=== PATIENT | male | born 1945 | race Caucasian/White ===

== ENCOUNTER → 2023-03-10 | Emergency (ER) | payer MEDICAID ==
[~2023-03-10] MED LIST: HYDROCODONE/APAP 10/325 TAB ONE; KETOROLAC 30 MG/ML INJ ONE; MORPHINE 4 MG/ML SYR ONE; NA CHLORIDE 0.9% 1,000 ML ONE; ONDANSETRON 4 MG/2 ML VIAL ONE
--- OUTSIDE RECORDS SUMMARY | 2023-03-10 06:59 | XMS REPORT | Clinical Summary ---
Author Name Unknown Organization [facility] Address [address] [place] [address] Care Team Providers Care Stain Applicator Name Role Phone Vira Salazar MD Unavailable [phone] Jody Jackson MD Unavailable [phone] Cristina Lake NP Unavailable Unavailable Bennett Burton MD Unavailable Unavailsowmya e Pavithra Chung DO Unavailable [phone] Sarai Pichardo APRN Unavailable [phone] Juan F Bravo MD Unavailable [phone] Yary Cobian MD Primary Care Provider [phone] Shannon Quintanilla MD Unavailable [phone] Bud Bazzi MD Unavailable Dylan Rae MD Unavailable [phone] Matilde Appiah MD Unavailable Azul Erwin MD Unavailable [phone] Allergies Active Allergy Reactions Criticality Noted Date Comments Horse/Equine Containing Products Anxiety,Dermatitis,Hi ves,Itching,Shortness Of Breath,Swelling High Iodinated Contrast Media Hives,Shortness Of Breath,Dermatitis,Ishmael h High 10/28/2014 Other Itching,Palpitations , Rash Medium 07/06/2015 Any agent with horse serum Medications Medication Sig Dispensed Refills Start Date End Date Status gemfibrozil (LOPID) 600 mg tablet Take 1 tablet (600 mg) by mouth twice daily. cholesterol 0 Active loperamide (IMODIUM) 2 mg capsule Take 1 capsule (2 mg) by mouth every 4 (four) hours as needed. Reported on 05/22/2016 0 Active lisinopril (PRINIVIL,ZESTRI L) 20 mg tablet Take 1 tablet (20 mg) by mouth twice daily. 0 Active vit C/E/Zn/coppr/lut ein/zeaxan (PRESERVISION AREDS-2 ORAL) TAKE 2 CAPSULES BY MOUTH EVERY DAY 0 12/03/2019 Active citalopram (CeleXA) 20 mg tabletIndication s:Other insomnia,Social problem,Bereavem ent TAKE TWO TABLETS BY MOUTH EVERY MORNING AND 1 TABLET IN THE EVENING 270 tablet 0 04/25/2020 Active temazepam (RESTORIL) 30 mg capsuleIndicatio ns:Moderate major depression Take 1 capsule (30 mg) by mouth at bedtime. 90 capsule 0 04/25/2020 Active Additional Information Patient taking differently:30 mg oralNightly PRN, Reason: Other, Informant: Self, Reported on 10/30/2022 tamsulosin (FLOMAX) 0.4 mg 24 hr capsule Take 1 capsule (0.4 mg) by mouth daily. 0 03/31/2020 Active ALPRAZolam (XANAX) 0.5 mg tablet Take 1 tablet (0.5 mg) by mouth 3 (three) times a day as needed. 0 Active famotidine (PEPCID) 20 mg tablet Take 1 tablet (20 mg) by mouth 2 (two) times a day as needed. 0 Active folic acid (FOLVITE) 1 mg tablet Take 1 tablet (1 mg) by mouth daily. 0 Active TESTOSTERONE CYPIONATE IM Inject into the shoulder, thigh, or buttocks See Admin Instructions. Every week 0 Active alendronate (FOSAMAX) 70 mg tablet TAKE ONE (1) TABLET(S) BY MOUTH EVERY WEEK, 30 MIN BEFORE MEAL WITH 8 OZ WATER, DO NOT LAY DOWN FOR 30 MINS AFTER. 0 07/09/2022 Active Xiidra 5 % ophthalmic solution INSTILL ONE (1) DROP(S) IN EACH EYE TWICE A DAY. 0 07/19/2022 Active acetaminophen (TYLENOL) 500 mg tabletIndication s:back pain Take 1 tablet (500 mg) by mouth nightly as needed for mild pain. 0 Active finasteride (PROSCAR) 5 mg tablet Take 1 tablet (5 mg) by mouth at bedtime. 0 01/31/2022 Active levoFLOXacin (LEVAQUIN) 500 mg tablet Take 1 tablet (500 mg) by mouth daily. 0 Active fluticasone propionate (FLONASE) 50 mcg/spray nasal spray Inhale 2 sprays (100 mcg) into each nostril daily. 0 Active lansoprazole (PREVACID) 30 MG capsule Take 1 capsule (30 mg) by mouth every morning. Acid reflux 0 3 Discontinue d(Therapy completed) metFORMIN (GLUCOPHAGE) 1000 mg tablet Take 0.5 tablets (500 mg) by mouth 2 (two) times a day with meals. diabetes 0 3 Discontinue d(Therapy completed) amLODIPine (NORVASC) 10 mg tablet Take 1 tablet (10 mg) by mouth daily. 0 04/19/2017 3 Discontinue d(Therapy completed) glimepiride (AMARYL) 1 mg tablet Take 1 tablet (1 mg) by mouth at bedtime. 0 3 Discontinue d(Other/Not Applicable) BUPROPION HCL ORAL Take 150 mg by mouth daily. 0 05/25/2021 3 Discontinue d(Therapy completed) propranolol (INDERAL) 20 mg tablet TAKE HALF OF A TABLET BY MOUTH TWICE A DAY 0 06/25/2022 3 Discontinue d(Other/Not Applicable) potassium chloride (K-DUR,KLOR-CON M) 20 mEq tablet Take 1 tablet (20 mEq) by mouth daily. 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 Overview: [facility] DX update Bereavement 11/01/2015 Mild recurrent major depression 07/06/2015 Social problem 07/06/2015 Amyloidosis 06/27/2015 Other specified anxiety disorders 06/27/2015 Anxiety depression 06/27/2015 Insomnia 06/27/2015 Disorder due to infection 11/25/2013 Encounters Date Type Department Care Team Description 02/05/2023 1:30 PM RAIL SIGNAL MECHANIC Follow[facility]Up [facility] [address] [place] [address] Main [facility], 8th [place] [address] Yary Cobian MD Light chain (AL) amyloidosis (Primary Dx); Other specified counseling 02/05/2023 10:45 AM RAIL SIGNAL MECHANIC - 02/05/2023 11:59 PM RAIL SIGNAL MECHANIC Hospital [facility]counter [facility] [address] [place] [address], [place] [address] Mela Hwang PA Light chain (AL) amyloidosis Discharge Disposition: Home 02/05/2023 10:44 AM RAIL SIGNAL MECHANIC Hospital En[facility] [address] [place] [address], [place] [address] Mela Hwang PA Light chain (AL) amyloidosis Discharge Disposition: Home 02/05/2023 Travel 01/24/2023 8:45 AM RAIL SIGNAL MECHANIC [facility] [address] [place] [address], 9th [place] [address] Bud Bazzi MD History of actinic keratosis; Personal history of other malignant neoplasm of skin; Melanocytic nevus of trunk 01/24/2023 Travel 10/30/2022 10:30 AM CDT Follow[facility] [address] [place] [address] Main [facility], 8th [place] [address] Yary Cobian MD Light chain (AL) amyloidosis (Primary Dx); Other specified counseling 10/30/2022 7:38 AM CDT - 10/30/2022 11:59 PM CDT Hospital Encounter [facility] [address] [place] [address], 6th [place] [address] Mela Hwang PA Light chain (AL) amyloidosis Discharge Disposition: Home 10/30/2022 7:09 AM CDT - 10/30/2022 7:37 AM CDT [facility] [address] [place] [address], [facility] [place] [address] Mela Hwang PA Light chain (AL) amyloidosis Discharge Disposition: Home 10/30/2022 7:08 AM CDT Hospital Encounter [facility] [address] [place] [address], [facility] [place] [address] Mela Hwang PA Light chain (AL) amyloidosis Discharge Disposition: Home 10/30/2022 Documentation [facility] [address] [place] [id number] Reji Anaya 10/30/2022 Travel 10/29/2022 1:55 PM CDT - 10/29/2022 11:59 PM CDT Hospital Encounter [facility] Karen Sarah MD Discharge Disposition: Home 08/28/2022 2:14 PM CDT - 08/28/2022 11:59 PM CDT Hospital [facility] [address] [place] [address], [place] [address] Shannon Quintanilla MD Syncope; Orthostatic intolerance; Polyneuropathy in diseases classified elsewhere Discharge Disposition: Home 08/28/2022 1:00 PM CDT [facility] [address] [place] [address], 7th [place] [address] Shannon Quintanilla MD Orthostatic intolerance (Primary Dx); Syncope; Polyneuropathy in diseases classified elsewhere; Light chain (AL) amyloidosis; Unsteady when walking 08/28/2022 Travel 07/25/2022 11:30 AM CDT [facility] [address] [place] [address], 8th [place] [address] Yary Cobian MD Light chain (AL) amyloidosis (Primary Dx); Acute cough; Syncope; Other specified counseling 07/25/2022 8:49 AM CDT - 07/25/2022 11:59 PM CDT Hospital Encounter [facility] [address] [place] [address], [place] [address] Mela Hwang PA Light chain (AL) amyloidosis Discharge Disposition: Home 07/25/2022 8:49 AM CDT - 07/25/2022 11:59 PM CDT Hospital En[facility] [address] [place] [address], [place] [address] Mela Hwang PA Light chain (AL) amyloidosis Discharge Disposition: Home 07/25/2022 Documentation [facility] [address] [place] [address], Main [facility], 1st [id number] [place] [address] Rosa Elena Robles, OT 07/25/2022 Travel 07/24/2022 10:22 AM CDT - 07/24/2022 11:59 PM CDT Hospital Encounter [facility] Karen Neri MD Discharge Disposition: Home 04/24/2022 10:30 AM RAIL SIGNAL MECHANIC Follow-Up [facility] [address] [place] [address], 8th [place] [address] Yary Cobian MD Light chain (AL) amyloidosis (Primary Dx); Other specified counseling 04/24/2022 7:43 AM RAIL SIGNAL MECHANIC - 04/24/2022 11:59 PM RAIL SIGNAL MECHANIC Hospital Encounter [facility] [address] [place] [address], [place] [address] Mela Hwang PA Light chain (AL) amyloidosis Discharge Disposition: Home 04/24/2022 7:43 AM RAIL SIGNAL MECHANIC - 04/24/2022 11:59 PM RAIL SIGNAL MECHANIC Hospital Encounter [facility] [address] [place] [address], [place] [address] Mela Hwang PA Light chain (AL) amyloidosis Discharge Disposition: Home 04/24/2022 Travel 04/23/2022 2:21 PM RAIL SIGNAL MECHANIC - 04/23/2022 11:59 PM RAIL SIGNAL MECHANIC Hospital Encounter [facility] Karen Neri MD Discharge Disposition: Home after 03/10/2022 Immunizations Name Administration Dates Next Due DTaP 01/13/2015,10/28/2014 DTaP / IPV 08/29/2015 Hepatitis B 08/29/2015,01/13/2015,10/28/2014 HiB 01/13/2015,10/28/2014 Hib (PRP-OMP) 08/29/2015 IPV 01/13/2015 Influenza (IM) Preservative Free 01/13/2015 Influenza Split High Dose Pr eservative Free IM 01/10/2022,02/07/2019 Influenza TIV (IM) 11/24/2019,11/10/2017 Moderna SARS-CoV-2 Monovalen t Booster Vaccination (50 mcg/0.5 mL) 12/26/2020 Moderna SARS-CoV-2 Vaccination 04/04/2020,2020 OPV 10/28/2014 Pfizer SARS-CoV-2 Bivalent B ooster 5-11 y.o. (10 mcg/0.2 mL) 01/10/2022 Pneumococcal Conjugate 13-Valent 08/29/2015,12/26,10/28/2014 Pneumococcal Polysaccharide 05/28/2016 Surgical History Surgery Date Site/Laterality Comments APPENDECTOMY HERNIA REPAIR RETINAL DETACHMENT SURGERY BIOPSY TEMPORAL ARTERY COLONOSCOPY BONE MARROW ASPIRATION OTHER SURGICAL HISTORY 02/24/2007 - 02/24/2008 removal of SCC AL COLONOSCOPY FLX DX W/COLLJ SPEC WHEN PFRMD 01/09/2016 N/A Procedure: DIAGNOSTIC FLEXIBLE COLONOSCOPY PROXIMAL TO SPLENIC FLEXURE; Surgeon: Dylan Rae MD; Location: MAIN ENDOSCOPY; Service: GASTROENTEROLOGY AL COLONOSCOPY FLX DX W/COLLJ SPEC WHEN PFRMD 01/07/2018 N/A Procedure: DIAGNOSTIC FLEXIBLE COLONOSCOPY PROXIMAL TO SPLENIC FLEXURE; Surgeon: Dylan Rae MD; Location: MAIN ENDOSCOPY; Service: GASTROENTEROLOGY AL COLONOSCOPY FLX DX W/COLLJ SPEC WHEN PFRMD 06/27/2020 N/A Procedure: DIAGNOSTIC FLEXIBLE COLONOSCOPY PROXIMAL TO SPLENIC FLEXURE/ first available please.; Surgeon: Dylan Rae MD; Location: MAIN ENDOSCOPY; Service: GASTROENTEROLOGY AL COLONOSCOPY FLX DX W/COLLJ SPEC WHEN PFRMD 10/19/2021 N/A Procedure: DIAGNOSTIC FLEXIBLE COLONOSCOPY PROXIMAL TO SPLENIC FLEXURE; Surgeon: Reji Randall MD; Location: MAIN ENDOSCOPY; Service: GASTROENTEROLOGY Medical History Medical History Date Comments AL amyloidosis Polyp of colon Diabetes mellitus Hypertension Benign prostatic hyperplasia Nephrolithiasis Anxiety depression Low back pain Retinal detachment Cancer of skin Anxiety Depression Mental disorder Pneumonia Family History Medical History Relation Name Comments Anxiety disorder Daughter Colon cancer Father Skin cancer Father Stomach cancer Maternal Uncle Anxiety disorder Mother Depression Mother Brain cancer Paternal Aunt Brain cancer Paternal Uncle 1 Colon cancer Paternal Uncle 2 Relation Name Status Comments Daughter Father Maternal Uncle Mother Paternal Aunt Paternal Uncle 1 Paternal Uncle 2 Social History Tobacco Use Types Packs/Day Years Used Date Smoking Tobacco: Never Smokeless Tobacco: Never Alcohol Use Standard Drinks/Week Comments No 0 (1 standard drink = 0.6 oz pur e alcohol) Quit 45 years ago Sex and Gender Information Value Date Recorded Sex Assigned at Male 09/29/2018 9:53 PM CDT Gender Identity Male 09/29/2018 9:53 PM CDT Sexual Orientation Straight 09/29/2018 9: 53 PM CDT Job Start Date Occupation Industry Not on file Not on file Not on file Obstetrics History Last Filed Vital Signs Vital Sign Reading Time Taken Comments Blood Pressure 129/80 02/05/2023 12:21 PM RAIL SIGNAL MECHANIC Pulse 66 02/05/2023 12:21 PM RAIL SIGNAL MECHANIC Temperature 36.8 C (98.2 F) 02/05/2023 12:[address] Respiratory Rate 17 02/05/2023 12:21 PM RAIL SIGNAL MECHANIC Oxygen Saturation 95% 02/05/2023 12:21 PM RAIL SIGNAL MECHANIC Inhaled Oxygen Concentration - - Weight 85.7 kg (188 lb 15 oz) 02/05/2023 12:13 P M RAIL SIGNAL MECHANIC Height - - Body Mass Index 27.92 04/14/2015 1:11 PM RAIL SIGNAL MECHANIC Plan of Treatment Upcoming Encounters Date Type Department Care Team Description 01/29/2024 8:45 AM RAIL SIGNAL MECHANIC [facility] [address] [place] [address] Main Bldg, 9th [place] [address] Bud Bazzi MD [address] [place] [address] [id number] Health Maintenance Due Date Last Done Comments COVID-19 Vaccination (3 - Mo derna risk series) 02/07/2022 01/10/2022, 12/26/2020, 04/04/2020, Additional history exists Procedures Procedure Name Priority Date/Time Associated Diagnosis Comments HISTORICAL ABORH Routine 02/05/2023 11:3 6 AM RAIL SIGNAL MECHANIC Light chain (AL) amyloidosis FREE KAPPA/FREE LAMBDA RATIO Routine 02/05/2023 11:05 AM RAIL SIGNAL MECHANIC Light chain (AL) amyloidosis IMMUNOFIXATION ELECTROPHORESIS Routine 02/05/2023 11:05 AM RAIL SIGNAL MECHANIC Light chain (AL) amyloidosis PROTEIN ELECTROPHORESIS Routine 02/06/20 11:05 AM RAIL SIGNAL MECHANIC Light chain (AL) amyloidosis .CBC Routine 02/05/2023 11:05 AM RAIL SIGNAL MECHANIC Light chain (AL) amyloidosis URINE TOTAL PROTEIN 24 HOUR Routine 02/05/2023 11:05 AM RAIL SIGNAL MECHANIC Light chain (AL) amyloidosis IMMUNOFIXATION ELECTROPHORESIS URINE Routine 02/05/2023 11:05 AM RAIL SIGNAL MECHANIC Light chain (AL) amyloidosis PROTEIN ELECTROPHORESIS URINE Routine 02/05/2023 11:05 AM RAIL SIGNAL MECHANIC Light chain (AL) amyloidosis SERUM PROTEIN ELECTROPHORESIS WITH RAVI Routine 02/05/2023 11:05 AM RAIL SIGNAL MECHANIC Light chain (AL) amyloidosis FREE LAMBDA LIGHT CHAIN Routine 02/06/20 11:05 AM RAIL SIGNAL MECHANIC Light chain (AL) amyloidosis FREE KAPPA LIGHT CHAIN Routine 11:05 AM RAIL SIGNAL MECHANIC Light chain (AL) amyloidosis IMMUNOGLOBULIN M Routine 02/05/2023 11:0 5 AM RAIL SIGNAL MECHANIC Light chain (AL) amyloidosis IMMUNOGLOBULIN G Routine 02/05/2023 11:0 5 AM RAIL SIGNAL MECHANIC Light chain (AL) amyloidosis IMMUNOGLOBULIN A Routine 02/05/2023 11:0 5 AM RAIL SIGNAL MECHANIC Light chain (AL) amyloidosis BETA 2 MICROGLOBULIN Routine 02/05/2023 11:05 AM RAIL SIGNAL MECHANIC Light chain (AL) amyloidosis VASCULAR ENDOTHELIAL GROWTH FCT Routine 02/05/2023 11:05 AM RAIL SIGNAL MECHANIC Light chain (AL) amyloidosis TROPONIN I Routine 02/05/2023 11:05 AM RAIL SIGNAL MECHANIC Light chain (AL) amyloidosis TROPONIN T Routine 02/05/2023 11:05 AM RAIL SIGNAL MECHANIC Light chain (AL) amyloidosis NT PRO BNP Routine 02/05/2023 11:05 AM RAIL SIGNAL MECHANIC Light chain (AL) amyloidosis MAGNESIUM LEVEL Routine 02/05/2023 11:05 AM RAIL SIGNAL MECHANIC Light chain (AL) amyloidosis LACTATE DEHYDROGENASE Routine 02/05/2023 11:05 AM RAIL SIGNAL MECHANIC Light chain (AL) amyloidosis URIC ACID Routine 02/05/2023 11:05 AM RAIL SIGNAL MECHANIC Light chain (AL) amyloidosis PHOSPHORUS LEVEL Routine 02/05/2023 11:0 5 AM RAIL SIGNAL MECHANIC Light chain (AL) amyloidosis COMPREHENSIVE METABOLIC PANEL Routine 02/05/2023 11:05 AM RAIL SIGNAL MECHANIC Light chain (AL) amyloidosis TYPE AND SCREEN Routine 02/05/2023 11:05 AM RAIL SIGNAL MECHANIC Light chain (AL) amyloidosis COMPLETE BLOOD COUNT W/ DIFFERENTIAL Routine 02/05/2023 11:05 AM RAIL SIGNAL MECHANIC Light chain (AL) amyloidosis PROTEIN ELECTROPHORESIS URINE WITH RAVI Routine 02/05/2023 11:05 AM RAIL SIGNAL MECHANIC Light chain (AL) amyloidosis ECHOCARDIOGRAM 2D COMPLETE W CONTRAST Routine 10/30/2022 9:01 AM CDT Light chain (AL) amyloidosis DR. SEAY RAVI PATHE REVIEW Routine 10/31/19 7:[address] SEAY PROT ELECTROPHORESIS PATH REVIEW Routine 10/30/2022 7:33 AM CDT TMP INTERPRETATION ANTIBODY SCREEN NEGATIVE Routine 10/30/2022 7:33 AM CDT CLOT EXPIRATION DATE Routine 10/30/2022 7:33 AM CDT FREE KAPPA/FREE LAMBDA RATIO Routine 10/30/2022 7:33 AM CDT ANTIBODY SCREEN Routine 10/30/2022 7:33 AM CDT Light chain (AL) amyloidosis ABORH Routine 10/30/2022 7:33 AM CDT Light chain (AL) amyloidosis FRACTIONATED BILIRUBIN Routine 7:33 AM CDT Light chain (AL) amyloidosis TOTAL PROTEIN Routine 10/30/2022 7:33 AM CDT Light chain (AL) amyloidosis ASPARTATE AMINOTRANSFERASE Routine 10/30/2022 7:33 AM CDT Light chain (AL) amyloidosis ALANINE AMINOTRANSFERASE Routine 7:33 AM CDT Light chain (AL) amyloidosis ALKALINE PHOSPHATASE Routine 10/30/2022 7:33 AM CDT Light chain (AL) amyloidosis ALBUMIN LEVEL Routine 10/30/2022 7:33 AM CDT Light chain (AL) amyloidosis CALCIUM LEVEL Routine 10/30/2022 7:33 AM CDT Light chain (AL) amyloidosis .GLOMERULAR FILTRATION RATE Routine 10/30/2022 7:33 AM CDT Light chain (AL) amyloidosis SERUM CREATININE Routine 10/30/2022 7:33 AM CDT Light chain (AL) amyloidosis ELECTROLYTE PANEL Routine 10/30/2022 7:3 3 AM CDT Light chain (AL) amyloidosis BLOOD UREA NITROGEN Routine 10/30/2022 7 :33 AM CDT Light chain (AL) amyloidosis GLUCOSE LEVEL Routine 10/30/2022 7:33 AM CDT Light chain (AL) amyloidosis DIFFERENTIAL Routine 10/30/2022 7:33 AM CDT Light chain (AL) amyloidosis .CBC Routine 10/30/2022 7:33 AM CDT Light chain (AL) amyloidosis VASCULAR ENDOTHELIAL GROWTH FCT Routine 10/30/2022 7:33 AM CDT Light chain (AL) amyloidosis TROPONIN I Routine 10/30/2022 7:33 AM CDT Light chain (AL) amyloidosis TROPONIN T Routine 10/30/2022 7:33 AM CDT Light chain (AL) amyloidosis NT PRO BNP Routine 10/30/2022 7:33 AM CDT Light chain (AL) amyloidosis SERUM PROTEIN ELECTROPHORESIS WITH RAVI Routine 10/30/2022 7:33 AM CDT Light chain (AL) amyloidosis PROTEIN ELECTROPHORESIS Routine 10/31/19 7:33 AM CDT Light chain (AL) amyloidosis FREE LAMBDA LIGHT CHAIN Routine 10/31/19 7:33 AM CDT Light chain (AL) amyloidosis FREE KAPPA LIGHT CHAIN Routine 7:33 AM CDT Light chain (AL) amyloidosis IMMUNOGLOBULIN M Routine 10/30/2022 7:33 AM CDT Light chain (AL) amyloidosis IMMUNOGLOBULIN G Routine 10/30/2022 7:33 AM CDT Light chain (AL) amyloidosis IMMUNOGLOBULIN A Routine 10/30/2022 7:33 AM CDT Light chain (AL) amyloidosis BETA 2 MICROGLOBULIN Routine 10/30/2022 7:33 AM CDT Light chain (AL) amyloidosis MAGNESIUM LEVEL Routine 10/30/2022 7:33 AM CDT Light chain (AL) amyloidosis LACTATE DEHYDROGENASE Routine 10/30/2022 7:33 AM CDT Light chain (AL) amyloidosis URIC ACID Routine 10/30/2022 7:33 AM CDT Light chain (AL) amyloidosis PHOSPHORUS LEVEL Routine 10/30/2022 7:33 AM CDT Light chain (AL) amyloidosis COMPREHENSIVE METABOLIC PANEL Routine 10/30/2022 7:33 AM CDT Light chain (AL) amyloidosis TYPE AND SCREEN Routine 10/30/2022 7:33 AM CDT Light chain (AL) amyloidosis COMPLETE BLOOD COUNT W/ DIFFERENTIAL Routine 10/30/2022 7:33 AM CDT Light chain (AL) amyloidosis .DR. WILLIAMSON UIFE PATH REVIEW Routine 10/29/2022 7:[address] WILLIAMSON U PROT ELEC PATH REVIEW Routine 10/29/2022 7:00 PM CDT .TOTAL VOLUME Routine 10/29/2022 7:00 PM CDT URINE TOTAL PROTEIN 24 HOUR Routine 10/29/2022 7:00 PM CDT PROTEIN ELECTROPHORESIS URINE Routine 10/29/2022 7:00 PM CDT Light chain (AL) amyloidosis PROTEIN ELECTROPHORESIS URINE WITH RAVI Routine 10/29/2022 7:00 PM CDT Light chain (AL) amyloidosis VITAMIN B1 Routine 08/28/2022 2:36 PM CDT Syncope Orthostatic intolerance Polyneuropathy in diseases classified elsewhere VITAMIN B6 LEVEL Routine 08/28/2022 2:36 PM CDT Syncope Orthostatic intolerance Polyneuropathy in diseases classified elsewhere FOLATE LEVEL Routine 08/28/2022 2:36 PM CDT Syncope Orthostatic intolerance Polyneuropathy in diseases classified elsewhere HOMOCYSTEINE TOTAL Routine 08/28/2022 2: 36 PM CDT Syncope Orthostatic intolerance Polyneuropathy in diseases classified elsewhere METHYLMALONIC ACID QUANTATIVE SERUM Routine 08/28/2022 2:36 PM CDT Syncope Orthostatic intolerance Polyneuropathy in diseases classified elsewhere VITAMIN B12 LEVEL Routine 08/28/2022 2:2 7 PM CDT Syncope Orthostatic intolerance Polyneuropathy in diseases classified elsewhere RESPIRATORY MULTIPLEX PCR PANEL, NASOPHARYNGEAL SWAB Routine 07/25/2022 11:44 AM CDT Acute cough TMP INTERPRETATION ANTIBODY SCREEN NEGATIVE Routine 07/25/2022 9:04 AM CDT CLOT EXPIRATION DATE Routine 07/25/2022 9:[address] WILLIAMSON RAVI PATH REVIEW Routine 07/25/2022 9:[address] WILLIAMSON PROT ELEC PATH REVIEW Routine 07/25/2022 9:04 AM CDT FREE KAPPA/FREE LAMBDA RATIO Routine 07/25/2022 9:04 AM CDT ANTIBODY SCREEN Routine 07/25/2022 9:04 AM CDT Light chain (AL) amyloidosis ABORH Routine 07/25/2022 9:04 AM CDT Light chain (AL) amyloidosis FRACTIONATED BILIRUBIN Routine 9:04 AM CDT Light chain (AL) amyloidosis TOTAL PROTEIN Routine 07/25/2022 9:04 AM CDT Light chain (AL) amyloidosis ASPARTATE AMINOTRANSFERASE Routine 07/25/2022 9:04 AM CDT Light chain (AL) amyloidosis ALANINE AMINOTRANSFERASE Routine 023 9:04 AM CDT Light chain (AL) amyloidosis ALKALINE PHOSPHATASE Routine 07/25/2022 9:04 AM CDT Light chain (AL) amyloidosis ALBUMIN LEVEL Routine 07/25/2022 9:04 AM CDT Light chain (AL) amyloidosis CALCIUM LEVEL Routine 07/25/2022 9:04 AM CDT Light chain (AL) amyloidosis .GLOMERULAR FILTRATION RATE Routine 07/25/2022 9:04 AM CDT Light chain (AL) amyloidosis SERUM CREATININE Routine 07/25/2022 9:04 AM CDT Light chain (AL) amyloidosis ELECTROLYTE PANEL Routine 07/25/2022 9:0 4 AM CDT Light chain (AL) amyloidosis BLOOD UREA NITROGEN Routine 07/25/2022 9 :04 AM CDT Light chain (AL) amyloidosis GLUCOSE LEVEL Routine 07/25/2022 9:04 AM CDT Light chain (AL) amyloidosis DIFFERENTIAL Routine 07/25/2022 9:04 AM CDT Light chain (AL) amyloidosis .CBC Routine 07/25/2022 9:04 AM CDT Light chain (AL) amyloidosis VASCULAR ENDOTHELIAL GROWTH FCT Routine 07/25/2022 9:04 AM CDT Light chain (AL) amyloidosis TROPONIN I Routine 07/25/2022 9:04 AM CDT Light chain (AL) amyloidosis TROPONIN T Routine 07/25/2022 9:04 AM CDT Light chain (AL) amyloidosis NT PRO BNP Routine 07/25/2022 9:04 AM CDT Light chain (AL) amyloidosis SERUM PROTEIN ELECTROPHORESIS WITH RAVI Routine 07/25/2022 9:04 AM CDT Light chain (AL) amyloidosis PROTEIN ELECTROPHORESIS Routine 07/26/19 9:04 AM CDT Light chain (AL) amyloidosis FREE LAMBDA LIGHT CHAIN Routine 07/26/19 9:04 AM CDT Light chain (AL) amyloidosis FREE KAPPA LIGHT CHAIN Routine 9:04 AM CDT Light chain (AL) amyloidosis IMMUNOGLOBULIN M Routine 07/25/2022 9:04 AM CDT Light chain (AL) amyloidosis IMMUNOGLOBULIN G Routine 07/25/2022 9:04 AM CDT Light chain (AL) amyloidosis IMMUNOGLOBULIN A Routine 07/25/2022 9:04 AM CDT Light chain (AL) amyloidosis BETA 2 MICROGLOBULIN Routine 07/25/2022 9:04 AM CDT Light chain (AL) amyloidosis MAGNESIUM LEVEL Routine 07/25/2022 9:04 AM CDT Light chain (AL) amyloidosis LACTATE DEHYDROGENASE Routine 07/25/2022 9:04 AM CDT Light chain (AL) amyloidosis URIC ACID Routine 07/25/2022 9:04 AM CDT Light chain (AL) amyloidosis PHOSPHORUS LEVEL Routine 07/25/2022 9:04 AM CDT Light chain (AL) amyloidosis COMPREHENSIVE METABOLIC PANEL Routine 07/25/2022 9:04 AM CDT Light chain (AL) amyloidosis TYPE AND SCREEN Routine 07/25/2022 9:04 AM CDT Light chain (AL) amyloidosis COMPLETE BLOOD COUNT W/ DIFFERENTIAL Routine 07/25/2022 9:04 AM CDT Light chain (AL) amyloidosis .DR. WILFRED THOMASFE PATH REVIEW Routine 07/24/2022 3:[address] HARDIN U PROT ELEC PATH REVIEW Routine 07/24/2022 3:00 PM CDT .TOTAL VOLUME Routine 07/24/2022 3:00 PM CDT URINE TOTAL PROTEIN 24 HOUR Routine 07/24/2022 3:00 PM CDT PROTEIN ELECTROPHORESIS URINE Routine 07/24/2022 3:00 PM CDT Light chain (AL) amyloidosis PROTEIN ELECTROPHORESIS URINE WITH RAVI Routine 07/24/2022 3:00 PM CDT Light chain (AL) amyloidosis .DR. WILFRED RODRIGUES PATH REVIEW Routine 04/24/2022 8:01 AM RAIL SIGNAL MECHANIC .DR. WILFRED LUU ELEC PATH REVIEW Routine 04/24/2022 8:01 AM RAIL SIGNAL MECHANIC CLOT EXPIRATION DATE Routine 04/24/2022 8:01 AM RAIL SIGNAL MECHANIC TMP INTERPRETATION ANTIBODY SCREEN NEGATIVE Routine 04/24/2022 8:01 AM RAIL SIGNAL MECHANIC FREE KAPPA/FREE LAMBDA RATIO Routine 04/24/2022 8:01 AM RAIL SIGNAL MECHANIC ANTIBODY SCREEN Routine 04/24/2022 8:01 AM RAIL SIGNAL MECHANIC Light chain (AL) amyloidosis ABORH Routine 04/24/2022 8:01 AM RAIL SIGNAL MECHANIC Light chain (AL) amyloidosis FRACTIONATED BILIRUBIN Routine 8:01 AM RAIL SIGNAL MECHANIC Light chain (AL) amyloidosis TOTAL PROTEIN Routine 04/24/2022 8:01 AM RAIL SIGNAL MECHANIC Light chain (AL) amyloidosis ASPARTATE AMINOTRANSFERASE Routine 04/24/2022 8:01 AM RAIL SIGNAL MECHANIC Light chain (AL) amyloidosis ALANINE AMINOTRANSFERASE Routine 023 8:01 AM RAIL SIGNAL MECHANIC Light chain (AL) amyloidosis ALKALINE PHOSPHATASE Routine 04/24/2022 8:01 AM RAIL SIGNAL MECHANIC Light chain (AL) amyloidosis ALBUMIN LEVEL Routine 04/24/2022 8:01 AM RAIL SIGNAL MECHANIC Light chain (AL) amyloidosis CALCIUM LEVEL Routine 04/24/2022 8:01 AM RAIL SIGNAL MECHANIC Light chain (AL) amyloidosis .GLOMERULAR FILTRATION RATE Routine 04/24/2022 8:01 AM RAIL SIGNAL MECHANIC Light chain (AL) amyloidosis SERUM CREATININE Routine 04/24/2022 8:01 AM RAIL SIGNAL MECHANIC Light chain (AL) amyloidosis ELECTROLYTE PANEL Routine 04/24/2022 8:0 1 AM RAIL SIGNAL MECHANIC Light chain (AL) amyloidosis BLOOD UREA NITROGEN Routine 04/24/2022 8 :01 AM RAIL SIGNAL MECHANIC Light chain (AL) amyloidosis GLUCOSE LEVEL Routine 04/24/2022 8:01 AM RAIL SIGNAL MECHANIC Light chain (AL) amyloidosis DIFFERENTIAL Routine 04/24/2022 8:01 AM RAIL SIGNAL MECHANIC Light chain (AL) amyloidosis .CBC Routine 04/24/2022 8:01 AM RAIL SIGNAL MECHANIC Light chain (AL) amyloidosis SERUM PROTEIN ELECTROPHORESIS WITH RAVI Routine 04/24/2022 8:01 AM RAIL SIGNAL MECHANIC Light chain (AL) amyloidosis PROTEIN ELECTROPHORESIS Routine 04/25/19 23 8:01 AM RAIL SIGNAL MECHANIC Light chain (AL) amyloidosis FREE LAMBDA LIGHT CHAIN Routine 04/25/19 23 8:01 AM RAIL SIGNAL MECHANIC Light chain (AL) amyloidosis FREE KAPPA LIGHT CHAIN Routine 8:01 AM RAIL SIGNAL MECHANIC Light chain (AL) amyloidosis IMMUNOGLOBULIN M Routine 04/24/2022 8:01 AM RAIL SIGNAL MECHANIC Light chain (AL) amyloidosis IMMUNOGLOBULIN G Routine 04/24/2022 8:01 AM RAIL SIGNAL MECHANIC Light chain (AL) amyloidosis IMMUNOGLOBULIN A Routine 04/24/2022 8:01 AM RAIL SIGNAL MECHANIC Light chain (AL) amyloidosis BETA 2 MICROGLOBULIN Routine 04/24/2022 8:01 AM RAIL SIGNAL MECHANIC Light chain (AL) amyloidosis VASCULAR ENDOTHELIAL GROWTH FCT Routine 04/24/2022 8:01 AM RAIL SIGNAL MECHANIC Light chain (AL) amyloidosis NT PRO BNP Routine 04/24/2022 8:01 AM RAIL SIGNAL MECHANIC Light chain (AL) amyloidosis MAGNESIUM LEVEL Routine 04/24/2022 8:01 AM RAIL SIGNAL MECHANIC Light chain (AL) amyloidosis LACTATE DEHYDROGENASE Routine 04/24/2022 8:01 AM RAIL SIGNAL MECHANIC Light chain (AL) amyloidosis URIC ACID Routine 04/24/2022 8:01 AM RAIL SIGNAL MECHANIC Light chain (AL) amyloidosis PHOSPHORUS LEVEL Routine 04/24/2022 8:01 AM RAIL SIGNAL MECHANIC Light chain (AL) amyloidosis COMPREHENSIVE METABOLIC PANEL Routine 04/24/2022 8:01 AM RAIL SIGNAL MECHANIC Light chain (AL) amyloidosis TYPE AND SCREEN Routine 04/24/2022 8:01 AM RAIL SIGNAL MECHANIC Light chain (AL) amyloidosis COMPLETE BLOOD COUNT W/ DIFFERENTIAL Routine 04/24/2022 8:01 AM RAIL SIGNAL MECHANIC Light chain (AL) amyloidosis TROPONIN I Routine 04/24/2022 7:52 AM RAIL SIGNAL MECHANIC Light chain (AL) amyloidosis TROPONIN T Routine 04/24/2022 7:52 AM RAIL SIGNAL MECHANIC Light chain (AL) amyloidosis .DR. WILLIAMSON UIFE PATH REVIEW Routine 04/23/2022 3:00 AM RAIL SIGNAL MECHANIC .DR. WILLIAMSON U PROT ELEC PATH REVIEW Routine 04/23/2022 3:00 AM RAIL SIGNAL MECHANIC .TOTAL VOLUME Routine 04/23/2022 3:00 AM RAIL SIGNAL MECHANIC URINE TOTAL PROTEIN 24 HOUR Routine 04/23/2022 3:00 AM RAIL SIGNAL MECHANIC PROTEIN ELECTROPHORESIS URINE Routine 04/23/2022 3:00 AM RAIL SIGNAL MECHANIC Light chain (AL) amyloidosis PROTEIN ELECTROPHORESIS URINE WITH RAVI Routine 04/23/2022 3:00 AM RAIL SIGNAL MECHANIC Light chain (AL) amyloidosis after 03/10/2022 Results * Historical ABORh (02/05/2023 11:36 AM RAIL SIGNAL MECHANIC) ABORh A POS 02/05/2023 11:37 AM RAIL SIGNAL MECHANIC [facility] Blood Peripheral blood specimen / Unknown 02/05/2023 11:36 AM RAIL SIGNAL MECHANIC 02/05/2023 11:36 AM RAIL SIGNAL MECHANIC Mela DICKEY BLOOD BANK TEST ORD ERABLES [facility] [id number] [place] [address] * RAVI Urine (02/05/2023 11:05 AM RAIL SIGNAL MECHANIC) Urine Immunofixation No BJP Seen 02/06/2023 6:25 PM RAIL SIGNAL MECHANIC [facility] UIFE Path Interp The follow-up urine protein immunofixation electrophoretic patterns obtained with the use of antisera against IgG, IgA, IgM, bound kappa and bound lambda light chains, free kappa and free lambda light chain proteins do not show definite evidence of a Bence-Medrano proteinuria 02/06/2023 6:25 PM RAIL SIGNAL MECHANIC [facility] Pathologist Signature . 02/06/2023 6:25 PM RAIL SIGNAL MECHANIC [facility] Urine 24 Hr Non-blood Collection / Unknown 02/05/2023 11:05 AM RAIL SIGNAL MECHANIC 02/05/2023 1:12 PM RAIL SIGNAL MECHANIC Mela DICKEY URINE ORDERABLES Performing Organization Address City/[facility]/ZIP Co de Phone Number [facility] Unless otherwise noted, all lab tests performed by: Division of Pathology and Laboratory Medicine [address] [place] [phone] * Protein Electrophoresis Urine (02/05/2023 11:05 AM RAIL SIGNAL MECHANIC) Urine Albumin % 63.2 % 02/06/2023 6:25 PM RAIL SIGNAL MECHANIC [facility] U Globulin % 36.8 % 02/06/2023 6:25 PM RAIL SIGNAL MECHANIC [facility] U ProE Path Interp The follow-up urine protein electrophoretic pattern shows a faint indistinct linear density in the gamma region. If a Bence-Medrano proteinuria is suspected clinically, serum free light chain and urine RAVI studies are recommended. 02/06/2023 6:25 PM RAIL SIGNAL MECHANIC [facility] Pathologist Signature . 02/06/2023 6:25 PM RAIL SIGNAL MECHANIC [facility] Urine 24 Hr Non-blood Collection / Unknown 02/05/2023 11:05 AM RAIL SIGNAL MECHANIC 02/05/2023 1:12 PM RAIL SIGNAL MECHANIC Mela DICKEY URINE ORDERABLES Performing Organization Address City/[facility]/ZIP Co de Phone Number [facility] Unless otherwise noted, all lab tests performed by: Division of Pathology and Laboratory Medicine [address] [place] [phone] * RAVI (02/05/2023 11:05 AM RAIL SIGNAL MECHANIC) Serum Immunofixation No M-protein 02/09/2023 11:34 AM RAIL SIGNAL MECHANIC [facility] RAVI Path Interp The follow-up serum protein immunofixation electrophoretic patterns obtained with the use of antisera against IgG, IgA, IgM, bound kappa and bound lambda light chains do not show definitive evidence of a monoclonal gammopathy. 02/09/2023 11:34 AM [facility] Pathologist Signature . 02/09/2023 11:34 AM [facility] Blood Venipuncture / Unknown 02/05/2023 11:05 AM [facility] 02/05/2023 11:10 AM [facility] Mela DICKEY LAB BLOOD ORDERABLE S [facility] Unless otherwise noted, all lab tests performed by: Division of Pathology and Laboratory Medicine [address] [place] [phone] * Serum Protein Electrophoresis (02/05/2023 11:05 AM [facility]) Albumin 3.9 3.6 - 5.4 gm/dL 02/09/2023 11:34 AM [facility] Alpha 1 Globulin 0.3 0.2 - 0.4 gm/dL 02/09/2023 11:34 AM [facility] Alpha 2 Globulin 0.9 0.5 - 1.0 gm/dL 02/09/2023 11:34 AM [facility] Beta Globulin 0.8 0.5 - 1.1 gm/dL 02/09/2023 11:34 AM [facility] Gamma Globulin 0.8 0.7 - 1.6 gm/dL 02/09/2023 11:34 AM [facility] SPE Path Interp The follow-up serum protein electrophoretic pattern shows no definitive evidence of an M-protein peak. If a paraproteinemia is suspected clinically, serum light chain studies, serum protein immunofixation, serum immunoglobulin quantification, and urine Bence-Medrano protein studies are recommended. 02/09/2023 11:34 AM [facility] Pathologist Signature . 02/09/2023 11:34 AM [facility] Total Protein 6.8 6.4 - 8.3 gm/dL 02/09/2023 11:34 AM [facility] Blood Venipuncture / Unknown 02/05/2023 11:05 AM RAIL SIGNAL MECHANIC 02/05/2023 11:10 AM RAIL SIGNAL MECHANIC Mela DICKEY LAB BLOOD ORDERABLE S [facility] Unless otherwise noted, all lab tests performed by: Division of Pathology and Laboratory Medicine [address] [place] [phone] * .CBC (02/05/2023 11:05 AM [facility]) Only the most recent of4 resultswithin the time period is included. White Blood Cell 4.7 4.1 - 10.5 K/uL 02/05/2023 11:[address] [facility] Red Blood Cell 4.71 4.30 - 6.04 M/uL 02/05/2023 11:[address] [facility] Hemoglobin 14.3 13.3 - 17.4 g/dL 02/05/2023 11:[address] [facility] Hematocrit 44.5 39.5 - 51.8 % 02/05/2023 11:[address] [facility] Mean Cell Volume 95 82 - 99 fL 02/06/20 11:[address] [facility] Mean Cell Hemoglobin 30.4 26.6 - 33.2 pg 02/05/2023 11:[address] [facility] Mean Cell Hemoglobin Concentration 32.1 31.1 - 35.2 g/dL 02/05/2023 11:[address] [facility] RDW-SD 48.1 37.5 - 49.7 fL 02/05/2023 11:[address] [facility] Red Cell Diameter Width 13.9 11.6 - 15.5 % 02/05/2023 11:[address] [facility] Platelet 231 160 - 397 K/uL 02/05/2023 11:[address] [facility] Mean Platelet Volume 10.4 9.1 - 12.6 fL 02/05/2023 11:[address] [facility] INRBC 0.0 0.0 - 0.1 /100 WBC 02/05/2023 11:[address] [facility] Comment: The INRBC (instrument NRBC) value reflects the enumeration of nucleated red blood cells contained in a 200uL sample of whole blood analyzed by the instrument. This value may differ from the NRBC value reported in a manual differential, which is based on a 100 cell differential. Neutrophil % 56.0 43.2 - 72.7 % 02/05/2023 11:[address] [facility] Lymphocyte % 29.1 16.8 - 46.2 % 02/05/2023 11:[address] [facility] Monocyte % 9.6 5.1 - 12.5 % 02/05/2023 11:[address] [facility] Eosinophil % 4.5 0.4 - 6.3 % 02/05/2023 11:[address] [facility] Basophil % 0.6 0.2 - 1.4 % 02/05/2023 11:[address] [facility] IGRE % 0.2 0.1 - 1.5 % 02/05/2023 11:[address] [facility] Comment:The IGRE% includes M etamyelocytes, Myelocytes and Promyelocytes. Neutrophil Abs 2.61 1.95 - 7.25 K/uL 02/05/2023 11:[address] [facility] Lymphocyte Abs 1.36 1.01 - 3.24 K/uL 02/05/2023 11:[address] [facility] Monocyte Abs 0.45 0.24 - 0.85 K/uL 02/05/2023 11:[address] [facility] Eosinophil Abs 0.21 0.02 - 0.50 K/uL 02/05/2023 11:[address] [facility] Basophil Abs 0.03 0.02 - 0.09 K/uL 02/05/2023 11:[address] [facility] IG Abs 0.01 0.01 - 0.12 K/uL 02/05/2023 11:[address] [facility] Blood Venipuncture / Unknown 02/05/2023 11:05 AM RAIL SIGNAL MECHANIC 02/05/2023 11:10 AM RAIL SIGNAL MECHANIC Mela DICKEY LAB BLOOD ORDERABLE S [facility] Unless otherwise noted, all lab tests performed by: Division of Pathology and Laboratory Medicine [address] [place] [phone] * Free Matheson/Free Lambda Ratio (02/05/2023 11:05 AM RAIL SIGNAL MECHANIC) Only the most recent of4 resultswithin the time period is included. Pathologist [facility] Free Matheson/ Free Lambda Ratio 1.36 0.26 - 1.65 02/05/2023 3:20 PM RAIL SIGNAL MECHANIC [facility] Blood Peripheral blood specimen / Unknown Venipuncture / Unknown 02/05/2023 11:05 AM RAIL SIGNAL MECHANIC 02/05/2023 11:10 AM RAIL SIGNAL MECHANIC Mela DICKEY LAB BLOOD ORDERABLE S Performing Organization Address [facility] Co de Phone Number [facility] Unless otherwise noted, all lab tests performed by: Division of Pathology and Laboratory Medicine [address] [place] [phone] * (ABNORMAL) Comprehensive Metabolic Panel (02/05/2023 11:05 AM RAIL SIGNAL MECHANIC) Pathologist [facility] Bilirubin Total 0.4 <=1.2 mg/dL 02/05/2023 11:38 AM RAIL SIGNAL MECHANIC [facility] Comment: Indocyanine Green (ICG) may cause falsely elevated bilirubin results. Total and direct bilirubin must not be measured from samples containing indocyanine green. False elevation of total bilirubin can be seen in patients with IgG concentrations above 28 g/L. This result was previously suppressed from the chart. Bilirubin Direct <0.2 <=0.3 mg/dL 02/05/2023 11:38 AM RAIL SIGNAL MECHANIC [facility] Comment: Indocyanine Green (ICG) may cause falsely elevated bilirubin results. Total and direct bilirubin must not be measured from samples containing indocyanine green. This result was previously suppressed from the chart. Bilirubin Indirect 2022 11:[address] [facility] Comment:Unable to calculate Indirect Bilirubin result due to some parameters are outside reportable range eGFR 65 >=60 mL/min/1. 73 sq. m 02/05/2023 11:[address] [facility] Comment: The eGFRcr is calculated with the 2020 CKD-EPI creatinine equation using creatinine, patient's age, and sex for adults 18 years of age and older. Other factors, especially muscle mass, may affect accuracy and need to be considered. According to the Kidney Disease: Improving Global Outcomes (KDIGO) CKD Work Group 2012 Clinical Practice Guideline, chronic kidney disease (CKD) is defined as the abnormalities of kidney structure or function, present for more than 3 months, with implications for health. CKD should be classified by cause, GFR category, and albuminuria category. KDIGO guidelines provide the following GFR categories. Stage / Description / GFR mL/min/1.73 m2: G1* / Normal or high / >= 90 G2* / Mildly decreased / 60-89 G3a / Mildly to moderately decreased / 45-59 G3b / Moderately to severely decreased / 30-44 G4 / Severely decreased / 15-29 G5 / Kidney failure / <15 *In the absence of evidence of kidney damage, neither G1 nor G2 fulfill criteria for CKD. Tot Protein 6.8 6.4 - 8.3 gm/dL 02/05/2023 11:[address] [facility] Comment:This result was prev iously suppressed from the chart. Calcium Level Total 9.3 8.2 - 10.2 mg/dL 02/05/2023 11:[address] [facility] Comment:This result was prev iously suppressed from the chart. Alkaline Phosphatase 55 40 - 129 U/L 02/05/2023 11:[address] [facility] Comment:This result was prev iously suppressed from the chart. Albumin Level 4.2 3.5 - 5.2 gm/dL 02/05/2023 11:[address] [facility] Comment:This result was prev iously suppressed from the chart. AST 17 <=40 U/L 02/05/2023 11:[address] [facility] Comment:This result was prev iously suppressed from the chart. ALT 14 <=41 U/L 02/05/2023 11:[address] [facility] Comment:This result was prev iously suppressed from the chart. Sodium Level 142 136 - 145 mmol/L 02/05/2023 11:[address] [facility] Comment:This result was prev iously suppressed from the chart. Potassium Level 3.7 3.4 - 4.5 mmol/L 02/05/2023 11:[address] [facility] Comment:This result was prev iously suppressed from the chart. Chloride 107 98 - 107 mmol/L 02/05/2023 11:[address] [facility] Comment:This result was prev iously suppressed from the chart. CO2 26 22 - 29 mmol/L 02/05/2023 11:[address] [facility] Comment:This result was prev iously suppressed from the chart. Anion Gap 9 4 - 14 mmol/L 02/05/2023 11:[address] [facility] Comment:This result was prev iously suppressed from the chart. Creatinine 1.15 0.67 - 1.17 mg/dL 02/05/2023 11:[address] [facility] Comment:This result was prev iously suppressed from the chart. BUN 13 6 - 23 mg/dL 02/05/2023 11:[address] [facility] Comment:This result was prev iously suppressed from the chart. Glucose Level 125(H) 70 - 99 mg/dL 02/05/2023 11:[address] [facility] Comment: Effective 09/20/15, the glucose reference intervals have been updated based on [place] Diabetes Association guidelines (Standards of Medical Care in Diabetes 2016. Diabetes Care 2016; 39: S13-S22). Fasting blood glucose: Normal: 70-99 mg/dL Impaired fasting glucose (increased risk for diabetes or pre-diabetes): 100-125 mg/dL Diabetes mellitus: >/=126 mg/dL Random blood glucose: Normal: 70-199 mg/dL Note: Random glucose >100 mg/dL is associated with increased risk for diabetes. This result was previously suppressed from the chart. Blood Venipuncture / Unknown 02/05/2023 11:05 AM [facility] 02/05/2023 11:10 AM RAIL SIGNAL MECHANIC Mela DICKEY LAB BLOOD ORDERABLE S [facility] Unless otherwise noted, all lab tests performed by: Division of Pathology and Laboratory Medicine [address] [place] [phone] * (ABNORMAL) 24hr Urine Total Protein (02/05/2023 11:05 AM RAIL SIGNAL MECHANIC) Only the most recent of4 resultswithin the time period is included. Urine Total Protein 23 mg/dL 02/05/2023 2:08 PM RAIL SIGNAL MECHANIC [facility] Comment:Caution is advised w hen interpreting values greater than 555 mg/dL. Results requiring extended dilution beyond the construction safety manager's recommended limit may not dilute linearly due to potential matrix effect. Correlation with clinical context is recommended. Urine Total Pro per Total volume 311(H) <=149 mg/24hr 02/05/2023 2:08 PM RAIL SIGNAL MECHANIC [facility] Total Volume 1,350 mL/24hr 02/05/2023 2:08 PM [facility] Hours Collected 24 hr 3 2:08 PM RAIL SIGNAL MECHANIC [facility] Start Date 3 02/05/2023 2:08 PM [facility] Start Time 8:00 PM 02/05/2023 2:08 PM [facility] End Date 3 02/05/2023 2:08 PM [facility] End Time 8:00 PM 02/05/2023 2:08 PM [facility] How many jugs collected? 1 02/05/2023 2:08 PM [facility] Urine 24 Hr Non-blood Collection / Unknown 02/05/2023 11:05 AM RAIL SIGNAL MECHANIC 02/05/2023 1:12 PM RAIL SIGNAL MECHANIC Mela DICKEY URINE ORDERABLES [facility] Unless otherwise noted, all lab tests performed by: Division of Pathology and Laboratory Medicine [address] [place] [phone] * Vascular Endothelial Growth Fct (02/05/2023 11:05 AM RAIL SIGNAL MECHANIC) Only the most recent of4 resultswithin the time period is included. VEGF-Ye 12.7 <=96.2 pg/mL 02/11/2023 2:08 PM RAIL SIGNAL MECHANIC [facility] Comment: ADDITIONAL INFORMATION This test was developed and its performance characteristics determined by [facility] in a manner consistent with CLIA requirements. This test has not been cleared or approved by the U.S. Food and Drug Administration. Test Performed by: [facility] [address] [place] [address] Grain Elevator Operator: Terrance Gutierrez M.D. Ph.D.; CLIA# [id number] Blood Venipuncture / Unknown 02/05/2023 11:05 AM RAIL SIGNAL MECHANIC 02/05/2023 11:09 AM RAIL SIGNAL MECHANIC Mela DICKEY LAB BLOOD ORDERABLE S [facility] CELESTINE * (ABNORMAL) NT-Pro BNP (In-House) (02/05/2023 11:05 AM RAIL SIGNAL MECHANIC) Only the most recent of4 resultswithin the time period is included. NT-ProBNP 933(H) <=450 pg/mL 02/05/2023 11:56 AM RAIL SIGNAL MECHANIC [facility] Blood Venipuncture / Unknown 02/05/2023 11:05 AM RAIL SIGNAL MECHANIC 02/05/2023 11:10 AM RAIL SIGNAL MECHANIC Mela DICKEY LAB BLOOD ORDERABLE S [facility] Unless otherwise noted, all lab tests performed by: Division of Pathology and Laboratory Medicine [address] [place] [address] [place] [address] * Free Lambda Light Chain (02/05/2023 11:05 AM RAIL SIGNAL MECHANIC) Only the most recent of4 resultswithin the time period is included. Free Lambda Light chain 18.87 5.71 - 26.30 mg/L 02/05/2023 3:20 PM RAIL SIGNAL MECHANIC [facility] Blood Venipuncture / Unknown 02/05/2023 11:05 AM RAIL SIGNAL MECHANIC 02/05/2023 11:10 AM RAIL SIGNAL MECHANIC Mela DICKEY LAB BLOOD ORDERABLE S Performing Organization Address City/[facility] Co de Phone Number [facility] Unless otherwise noted, all lab tests performed by: Division of Pathology and Laboratory Medicine [address] [place] [phone] * (ABNORMAL) Free Matheson Light Chain (02/05/2023 11:05 AM RAIL SIGNAL MECHANIC) Only the most recent of4 resultswithin the time period is included. Free Matheson Light 25.74(H) 3.30 - 19.40 mg/L 02/05/2023 3:20 PM RAIL SIGNAL MECHANIC [facility] Blood Venipuncture / Unknown 02/05/2023 11:05 AM RAIL SIGNAL MECHANIC 02/05/2023 11:10 AM RAIL SIGNAL MECHANIC Mela DICKEY LAB BLOOD ORDERABLE S Performing Organization Address [facility] de Phone Number [facility] Unless otherwise noted, all lab tests performed by: Division of Pathology and Laboratory Medicine [address] [place] [phone] * Troponin I (Sendout) (02/05/2023 11:05 AM RAIL SIGNAL MECHANIC) Only the most recent of4 resultswithin the time period is included. Troponin-I 22 <=78 02/05/2023 10:50 PM RAIL SIGNAL MECHANIC [facility] Blood Venipuncture / Unknown 02/05/2023 11:05 AM RAIL SIGNAL MECHANIC 02/05/2023 11:09 AM RAIL SIGNAL MECHANIC Narrative [facility] - 02/05/2023 10:50 PM RAIL SIGNAL MECHANIC Based on the Third [place] Definition of Mycocardial Infarction, the 99th percentile upper reference limit of Troponin I for a healthy population is <0.03 ng/mL. Mela DICKEY LAB BLOOD ORDERABLE S [facility] [id number] [place] [address], [place] * Type and Screen (02/05/2023 11:05 AM RAIL SIGNAL MECHANIC) ABORh A POS 02/05/2023 10:45 AM RAIL SIGNAL MECHANIC [facility] ABSC Negative 02/05/2023 10:45 AM RAIL SIGNAL MECHANIC [facility] Clot Expiration 02/08/2023 23:59 02/05/2023 10:45 AM RAIL SIGNAL MECHANIC [facility] Historical Record Check Complete 02/05/2023 10:45 AM RAIL SIGNAL MECHANIC [facility] Blood Venipuncture / Unknown 02/05/2023 11:05 AM RAIL SIGNAL MECHANIC 02/05/2023 11:10 AM RAIL SIGNAL MECHANIC Mela DICKEY BLOOD BANK TEST ORD ERABLES [facility] [address] [place] [address] [id number] [place] [address] * Uric Acid (02/05/2023 11:05 AM RAIL SIGNAL MECHANIC) Only the most recent of4 resultswithin the time period is included. Pathologist [facility] Uric Acid 5.1 3.4 - 7.0 mg/dL 02/05/2023 11:38 AM RAIL SIGNAL MECHANIC [facility] Blood Venipuncture / Unknown 02/05/2023 11:05 AM RAIL SIGNAL MECHANIC 02/05/2023 11:10 AM RAIL SIGNAL MECHANIC Mela DICKEY LAB BLOOD ORDERABLE S [facility] Unless otherwise noted, all lab tests performed by: Division of Pathology and Laboratory Medicine [address] [place] [phone] * (ABNORMAL) Troponin T (In-House) (02/05/2023 11:05 AM RAIL SIGNAL MECHANIC) Only the most recent of4 resultswithin the time period is included. Troponin T 20(H) <=19 ng/L 02/05/2023 11:47 AM RAIL SIGNAL MECHANIC [facility] Blood Venipuncture / Unknown 02/05/2023 11:05 AM RAIL SIGNAL MECHANIC 02/05/2023 11:10 AM RAIL SIGNAL MECHANIC Narrative [facility] - 02/05/2023 11:47 AM RAIL SIGNAL MECHANIC Reference range established for age 21 - 89 years < 19 ng/L, suggest retest at 3 to 6 hours later to rule out myocardial infarction >= 19 to <=52 ng/L, possible myocardial injury; suggest retest at 3 hours - a change of < 20 ng/L, retest at 6 hours - a change of >= 20 ng/L, suggestive of myocardial infarction > 52 ng/L, suggestive of myocardial infarction Critical value will be reported when cTnT isf > 52 ng/L and only reported for the first in a series. Hemolyzed specimens with Hemolysis Index >100 (100 mg/dl or moderate hemolysis) may cause interferences and falsely low results. Mela DICKEY LAB BLOOD ORDERABLE S [facility] Unless otherwise noted, all lab tests performed by: Division of Pathology and Laboratory Medicine [address] [place] [id number] * Phosphorus Level (02/05/2023 11:05 AM RAIL SIGNAL MECHANIC) Only the most recent of4 resultswithin the time period is included. Phosphorus Level 2.7 2.5 - 4.5 mg/dL 02/05/2023 11:38 AM RAIL SIGNAL MECHANIC [facility] Blood Venipuncture / Unknown 02/05/2023 11:05 AM RAIL SIGNAL MECHANIC 02/05/2023 11:10 AM RAIL SIGNAL MECHANIC Mela DICKEY LAB BLOOD ORDERABLE S [facility] Unless otherwise noted, all lab tests performed by: Division of Pathology and Laboratory Medicine [address] [place] [id number] * Magnesium Level (02/05/2023 11:05 AM RAIL SIGNAL MECHANIC) Only the most recent of4 resultswithin the time period is included. [facility] Magnesium Level 1.6 1.6 - 2.6 mg/dL 02/05/2023 11:38 AM RAIL SIGNAL MECHANIC [facility] Blood Venipuncture / Unknown 02/05/2023 11:05 AM RAIL SIGNAL MECHANIC 02/05/2023 11:10 AM RAIL SIGNAL MECHANIC Mela DICKEY LAB BLOOD ORDERABLE S Performing Organization Address [facility]/ZIP Co de Phone Number [facility] Unless otherwise noted, all lab tests performed by: Division of Pathology and Laboratory Medicine [address] [place] [address] * LDH (02/05/2023 11:05 AM RAIL SIGNAL MECHANIC) Only the most recent of4 resultswithin the time period is included. [facility] LDH 135 135 - 225 U/L 02/05/2023 11:38 AM RAIL SIGNAL MECHANIC [facility] Blood Venipuncture / Unknown 02/05/2023 11:05 AM RAIL SIGNAL MECHANIC 02/05/2023 11:10 AM RAIL SIGNAL MECHANIC Narrative [facility] - 02/05/2023 11:38 AM RAIL SIGNAL MECHANIC Results greater than 1651 U/L may not be reliable due to matrix effect with extended dilution as it exceeds the construction safety manager's recommended limit. Caution should be exercised when interpreting such values and done in conjunction with clinical context. Mela DICKEY LAB BLOOD ORDERABLE S [facility] Unless otherwise noted, all lab tests performed by: Division of Pathology and Laboratory Medicine [address] [place] [id number] * IgA (02/05/2023 11:05 AM RAIL SIGNAL MECHANIC) Only the most recent of4 resultswithin the time period is included. [facility] IgA 156.0 85.0 - 499.0 mg/dL 02/05/2023 3:20 PM RAIL SIGNAL MECHANIC [facility] Blood Venipuncture / Unknown 02/05/2023 11:05 AM RAIL SIGNAL MECHANIC 02/05/2023 11:10 AM RAIL SIGNAL MECHANIC Mela DICKEY LAB BLOOD ORDERABLE S [facility] Unless otherwise noted, all lab tests performed by: Division of Pathology and Laboratory Medicine [address] [place] [id number] * IgM (02/05/2023 11:05 AM RAIL SIGNAL MECHANIC) Only the most recent of4 resultswithin the time period is included. IgM 76.0 35.0 - 242.0 mg/dL 02/05/2023 3:20 PM RAIL SIGNAL MECHANIC [facility] Blood Venipuncture / Unknown 02/05/2023 11:05 AM RAIL SIGNAL MECHANIC 02/05/2023 11:10 AM RAIL SIGNAL MECHANIC Mela DICKEY LAB BLOOD ORDERABLE S [facility] Unless otherwise noted, all lab tests performed by: Division of Pathology and Laboratory Medicine [address] [place] [address] * IgG (02/05/2023 11:05 AM RAIL SIGNAL MECHANIC) Only the most recent of4 resultswithin the time period is included. IgG 740.0 610.0 - 1,616.0 mg/dL 02/05/2023 3:20 PM RAIL SIGNAL MECHANIC [facility] Blood Venipuncture / Unknown 02/05/2023 11:05 AM RAIL SIGNAL MECHANIC 02/05/2023 11:10 AM RAIL SIGNAL MECHANIC Mela DICKEY LAB BLOOD ORDERABLE S [facility] Unless otherwise noted, all lab tests performed by: Division of Pathology and Laboratory Medicine [address] [place] [phone] * (ABNORMAL) Beta 2 Microglobulin (02/05/2023 11:05 AM RAIL SIGNAL MECHANIC) Only the most recent of4 resultswithin the time period is included. Beta 2 Microglobulin 2.50(H) 0.80 - 2.30 mg/L 02/05/2023 3:20 PM RAIL SIGNAL MECHANIC [facility] Blood Venipuncture / Unknown 02/05/2023 11:05 AM RAIL SIGNAL MECHANIC 02/05/2023 11:10 AM RAIL SIGNAL MECHANIC Narrative [facility] - 02/05/2023 3:20 PM RAIL SIGNAL MECHANIC This test is measured by turbidimetric methodology on The [employer] Optilite analyzer. Results obtained in different methods are not interchangeable. Mela DICKEY LAB BLOOD ORDERABLE S [facility] Unless otherwise noted, all lab tests performed by: Division of Pathology and Laboratory Medicine [address] [place] [id number] * Echocardiogram 2D Complete with Contrast (10/30/2022 9:01 AM CDT) 10/30/2022 8:06 AM CDT Narrative [facility] - 10/30/2022 11:35 AM CDT Echocardiographic Report Interpretation Summary A complete two-dimensional transthoracic echocardiogram was performed (2D, M- mode, Spectral and color Doppler). Micro-Bubbles injection performed because of poor endocardial resolution. Compared to prior study dated : 02/19/2018, Mild left ventricular systolic dysfunction. . Left ventricle normal size by volumetric criteria with contrast agent. There is mild global hypokinesis of the left ventricle. Microbubble enhanced LVEF using the Bi-plane method of disks method is 45-50%. Right ventricular systolic pressure is elevated at 36-40mmHg. Abnormal global longitudinal peak systolic value. There is no pericardial effusion. Left Ventricle: Left ventricle normal size by volumetric criteria with contrast agent. Normal contrast volumes for: women: < 83 cc/m2 / men: < 98 cc/m2. There is normal left ventricular wall thickness. There is mild global LV systolic dysfunction. Microbubble enhanced LVEF using the Bi-plane method of disks method is 45-50%. There is mild global hypokinesis of the left ventricle. I WMSI = 2.00 % Normal = 0 Abnormal global longitudinal peak systolic value. X - Cannot 1 - Normal 2 - 3 - Akinetic 4 - Dyskinetic Interpret Hypokinetic 5 - Aneurysmal 3D imaginD volumes were not performed in this study. Cardiac Mechanics/Speckle Tracking Imaging: Abnormal global longitudinal peak systolic value. Strain Imaging was performed; GLPS avg = -11%. The longitudinal deformation is abnormal, apical preservation pattern is noted. Diastology: Pseudonormal LV relaxation pattern of diastolic dysfunction, Doppler suggests increased estimated LA pressure. Right Ventricle: The right ventricle is normal in size and function. Normal RV systolic function using TAPSE criteria. Atria: The left atrium is mildly dilated. Right atrial size is normal. Mitral Valve: Mild thickening changes are noted. Mitral annular calcification is present. There is mild mitral regurgitation. Tricuspid Valve: The tricuspid valve is not well visualized, but is grossly normal. There is mild tricuspid regurgitation. Right ventricular systolic pressure is elevated at 36-40mmHg. The tricuspid valve regurgitation velocity suggests mild pulmonary hypertension. Aortic Valve: The aortic valve is trileaflet. The aortic valve opens well. Mild thickening changes are noted. There is mild aortic regurgitation. Pulmonic Valve: The pulmonic valve is not well visualized. Trace pulmonic valvular regurgitation. Great Vessels: The aortic root is normal size. The inferior vena cava demonstrates normal size and normal respiratory variation. Pericardium/Pleural: There is no pericardial effusion. Preliminary Reviewer Preliminary Interpretation: Eula Christiansen MD. MMode/2D Measurements IVSd: 0.96 cm LVIDd: 5.5 cm LVIDs: 4.8 cm LVPWd: 0.99 cm FS: 13.0 % Ao root diam: 3.3 cm Ao root area: 8.5 cm2 LA dimension: 4.4 cm LVOT diam: 2.5 cm EDV(MOD-A4C): 173.7 ml ESV(MOD-A4C): 92.4 ml LVOT area: 5.0 cm2 EF(MOD-A4C): 46.8 % EDV(MOD-A2C): 184.1 ml ESV(MOD-A2C): 97.0 ml EDV(MOD-bp): 182.5 ml EF(MOD-A2C): 47.3 % ESV(MOD-bp): 95.5 ml EF(MOD-bp): 47.7 % LAV(MOD-A2C): 62.1 ml EDV (MOD-bp) Index: 92.5 ml/m2 LAV(MOD-A4C): 78.2 ml LAV(MOD-bp): 75.0 ml LAV(MOD-bp) Indexed: 38.0 ml/m2 ESV (MOD-bp) Index: 48.4 ml/m2 RWT: 0.36 cm TAPSE (>1.6): 2.1 cm Doppler Measurements MV E max kristofer: 77.6 cm/sec MV V2 max: 87.6 cm/sec MV A max kristofer: 21.1 cm/sec MV max P.1 mmHg MV E/A: 3.7 MV V2 mean: 37.2 cm/sec MV mean P.75 mmHg MV V2 VTI: 28.0 cm MVA(VTI): 4.0 cm2 MV P1/2t max kristofer: 77.2 cm/sec Ao V2 max: 125.3 cm/sec MV P1/2t: 79.8 msec Ao max P.3 mmHg Ao V2 mean: 85.0 cm/sec MVA(P1/2t): 2.8 cm2 Ao mean P.2 mmHg MV dec slope: 283.5 cm/sec2 Ao V2 VTI: 22.4 cm SARAH(I,D): 5.0 cm2 SARAH(V,D): 4.2 cm2 LV V1 max P.4 mmHg SV(LVOT): 111.5 ml LV V1 mean P.2 mmHg LV V1 max: 105.0 cm/sec LV V1 mean: 69.1 cm/sec LV V1 VTI: 22.1 cm PA V2 max: 72.8 cm/sec Med Peak E' Kristofer: 3.8 cm/sec PA max P.1 mmHg PA V2 mean: 51.8 cm/sec PA mean P.2 mmHg PA V2 VTI: 15.3 cm Lat Peak E' Kristofer: 4.6 cm/sec TR max kristofer: 285.1 cm/sec TR max P.4 mmHg RVSP(TR): 38.4 mmHg RAP systole: 3.0 mmHg RV S Vel_phl: 8.2 cm/sec SARAH Index (I,D): 2.5 SARAH Index (V,D): 2.1 Dimensionless Index: 0.84 E/e' (avg): 18.5 E/e' (lat): 16.8 E/e' (sept): 20.6 Procedure Note Howard Michaud MD - 10/30/2022 Echocardiographic Report Interpretation Summary A complete two-dimensional transthoracic echocardiogram was performed (2D,M- mode, Spectral and color Doppler). Micro-Bubbles injection performedbecause of poor endocardial resolution. Compared to prior study dated :02/19/2018, Mild left ventricular systolic dysfunction. . Left ventricle normal size by volumetric criteria with contrast agent. There is mild global hypokinesis of the left ventricle. Microbubble enhanced LVEF using the Bi-plane method of disks method is45-50%. Right ventricular systolic pressure is elevated at 36-40mmHg. Abnormal global longitudinal peak systolic value. There is no pericardial effusion. Left Ventricle: Left ventricle normal size by volumetric criteria with contrast agent.Normal contrast volumes for: women: < 83 cc/m2 / men: < 98 cc/m2. There isnormal left ventricular wall thickness. There is mild global LV systolicdysfunction. Microbubble enhanced LVEF using the Bi-plane method of disksmethod is 45-50%. There is mild global hypokinesis of the leftventricle. I WMSI = 2.00 % Normal = 0 Abnormal global longitudinal peak systolic value. X - Cannot 1 - Normal 2 - 3 - Akinetic 4 - Dyskinetic Interpret Hypokinetic 5 - Aneurysmal 3D imaginD volumes were not performed in this study. Cardiac Mechanics/Speckle Tracking Imaging: Abnormal global longitudinal peak systolic value. Strain Imaging wasperformed; GLPS avg = -11%. The longitudinal deformation is abnormal,apical preservation pattern is noted. Diastology: Pseudonormal LV relaxation pattern of diastolic dysfunction, Dopplersuggests increased estimated LA pressure. Right Ventricle: The right ventricle is normal in size and function. Normal RV systolicfunction using TAPSE criteria. Atria: The left atrium is mildly dilated. Right atrial size is normal. Mitral Valve: Mild thickening changes are noted. Mitral annular calcification ispresent. There is mild mitral regurgitation. Tricuspid Valve: The tricuspid valve is not well visualized, but is grossly normal. Thereis mild tricuspid regurgitation. Right ventricular systolic pressure iselevated at 36- 40mmHg. The tricuspid valve regurgitation velocity suggestsmild pulmonary hypertension. Aortic Valve: The aortic valve is trileaflet. The aortic valve opens well. Mildthickening changes are noted. There is mild aortic regurgitation. Pulmonic Valve: The pulmonic valve is not well visualized. Trace pulmonic valvularregurgitation. Great Vessels: The aortic root is normal size. The inferior vena cava demonstrates normalsize and normal respiratory variation. Pericardium/Pleural: There is no pericardial effusion. Preliminary Reviewer Preliminary Interpretation: Eula Christiansen MD. MMode/2D Measurements IVSd: 0.96 cmLVIDd: 5.5 cm LVIDs: 4.8 cm LVPWd: 0.99 cm FS: 13.0 %Ao root diam: 3.3 cm Ao root area: 8.5 cm2 LA dimension: 4.4 cm LVOT diam: 2.5 cmEDV(MOD-A4C): 173.7 ml ESV(MOD-A4C): 92.4 ml LVOT area: 5.0 cm2EF(MOD-A4C): 46.8 % EDV(MOD-A2C): 184.1 ml ESV(MOD-A2C): 97.0 mlEDV(MOD-bp): 182.5 ml EF(MOD-A2C): 47.3 %ESV(MOD-bp): 95.5 ml EF(MOD-bp): 47.7 % LAV(MOD-A2C): 62.1 mlEDV (MOD-bp) Index: 92.5 ml/m2 LAV(MOD-A4C): 78.2 ml LAV(MOD-bp): 75.0 ml LAV(MOD-bp) Indexed: 38.0 ml/m2 ESV (MOD-bp) Index: 48.4 ml/m2RWT: 0.36 cm TAPSE (>1.6): 2.1 cm Doppler Measurements MV E max kristofer: 77.6 cm/secMV V2 max: 87.6 cm/sec MV A max kristofer: 21.1 cm/secMV max P.1 mmHg MV E/A: 3.7MV V2 mean: 37.2 cm/sec MV mean P.75 mmHg MV V2 VTI: 28.0 cm MVA(VTI): 4.0 cm2 MV P1/2t max kristofer: 77.2 cm/secAo V2 max: 125.3 cm/sec MV P1/2t: 79.8 msecAo max P.3 mmHg Ao V2 mean: 85.0 cm/sec MVA(P1/2t): 2.8 cm2Ao mean P.2 mmHg MV dec slope: 283.5 cm/sec2Ao V2 VTI: 22.4 cm SARAH(I,D): 5.0 cm2 SARAH(V,D): 4.2 cm2 LV V1 max P.4 mmHgSV(LVOT): 111.5 ml LV V1 mean P.2 mmHg LV V1 max: 105.0 cm/sec LV V1 mean: 69.1 cm/sec LV V1 VTI: 22.1 cm PA V2 max: 72.8 cm/secMed Peak E' Kristofer: 3.8 cm/sec PA max P.1 mmHg PA V2 mean: 51.8 cm/sec PA mean P.2 mmHg PA V2 VTI: 15.3 cm Lat Peak E' Kristofer: 4.6 cm/secTR max kristofer: 285.1 cm/sec TR max P.4 mmHg RVSP(TR): 38.4 mmHg RAP systole: 3.0 mmHgRV S Vel_phl: 8.2 cm/sec SARAH Index (I,D): 2.5AVA Index (V,D): 2.1 Dimensionless Index: 0.84E/e' (avg): 18.5 E/e' (lat): 16.8E/e' (sept): 20.6 Mela DICKEY CV ECHO ORDERABLES [facility] * Dr. Seay Prot Electrophoresis Path Review (10/30/2022 7:33 AM CDT) SPE Path Interp The follow-up serum protein electrophoretic pattern shows no definitive evidence of an M-protein peak. If a paraproteinemia is suspected clinically, serum light chain studies, serum protein immunofixation, serum immunoglobulin quantification, and urine Bence-Medrano protein studies are recommended. [facility] Comment: MD Tommie ZENDEJAS Dictated by: MD Tommie ZENDEJAS Dictated Date/Time: 10.31.2022 15:02 PM CDT Transcribed Date/Time: 10.31.2022 15:02 PM CDT Electronically Signed By: MD Tommie ZENDEJAS on 10.31.2022 15:02 PM Blood 10/30/2022 7:33 AM CDT 10/31/2022 11:50 AM CDT Mela DICKEY LAB BLOOD ORDERABLE S [facility] Unless otherwise noted, all lab tests performed by: Division of Pathology and Laboratory Medicine [address] [place] [phone] * Dr. Seay RAVI Path Review (10/30/2022 7:33 AM CDT) RAVI Path Int The follow-up serum protein immunofixation electrophoretic patterns obtained with the use of antisera against IgG, IgA, IgM, bound kappa and bound lambda light chains do not show definitive evidence of a monoclonal gammopathy. [facility] Comment: MD Tommei ZENDEJAS Dictated by: MD Tommie ZENDEJAS Dictated Date/Time: 10.31.2022 15:02 PM CDT Transcribed Date/Time: 10.31.2022 15:02 PM CDT Electronically Signed By: MD Tommie ZENDEJAS on 10.31.2022 15:02 PM Blood 10/30/2022 7:33 AM CDT 10/31/2022 11:50 AM CDT Mela DICKEY LAB BLOOD ORDERABLE S Performing Organization Address City/[facility] Co de Phone Number [facility] Unless otherwise noted, all lab tests performed by: Division of Pathology and Laboratory Medicine [address] [place] [address] * .Serum Creatinine (10/30/2022 7:33 AM CDT) Only the most recent of3 resultswithin the time period is included. Pathologist [facility] Creatinine 1.10 0.67 - 1.17 mg/dL [facility] Blood 10/30/2022 7:33 AM CDT 10/30/2022 8:07 AM CDT Mela DICKEY LAB BLOOD ORDERABLE S Performing Organization Address [facility] Co de Phone Number [facility] Unless otherwise noted, all lab tests performed by: Division of Pathology and Laboratory Medicine [address] [place] [address] * Clot Expiration Date (10/30/2022 7:33 AM CDT) Only the most recent of3 resultswithin the time period is included. [facility] T & S Expiration 11/02/2022 [facility] Blood 10/30/2022 7:33 AM CDT 10/30/2022 8:48 AM CDT Mela DICKEY BLOOD BANK TEST ORD ERABLES Performing Organization Address City/[facility] Co de Phone Number [facility] Unless otherwise noted, all lab tests performed by: Division of Pathology and Laboratory Medicine [address] [place] [phone] * Glomerular Filtration Rate (10/30/2022 7:33 AM CDT) Only the most recent of3 resultswithin the time period is included. Pathologist [facility] eGFR 68 >=60 mL/min/1.7 3 sq. m [facility] Comment: The eGFRcr is calculated with the 2020 CKD-EPI creatinine equation using creatinine, patient's age, and sex for adults 18 years of age and older. Other factors, especially muscle mass, may affect accuracy and need to be considered. According to the Kidney Disease: Improving Global Outcomes (KDIGO) CKD Work Group 2012 Clinical Practice Guideline, chronic kidney disease (CKD) is defined as the abnormalities of kidney structure or function, present for more than 3 months, with implications for health. CKD should be classified by cause, GFR category, and albuminuria category. KDIGO guidelines provide the following GFR categories Stage Description GFR mL/min/1.73 m2 G1* Normal or high >= 90 G2* Mildly decreased 60-89 G3a Mildly to moderately decreased 45-59 G3b Moderately to severely decreased 30-44 G4 Severely decreased 15-29 G5 Kidney failure <15 *In the absence of evidence of kidney damage, neither G1 nor G2 fulfill criteria for CKD. Blood 10/30/2022 7:33 AM CDT 10/30/2022 8:07 AM CDT Mela DICKEY LAB BLOOD ORDERABLE S [facility] Unless otherwise noted, all lab tests performed by: Division of Pathology and Laboratory Medicine [address] [place] [phone] * Fractionated Bilirubin (10/30/2022 7:33 AM CDT) Only the most recent of3 resultswithin the time period is included. Bili Total 0.5 <=1.2 mg/dL [facility] Comment: Indocyanine Green (ICG) may cause falsely elevated bilirubin results. Total and direct bilirubin must not be measured from samples containing indocyanine green. False elevation of total bilirubin can be seen in patients with IgG concentrations above 28 g/L. Bili Direct 0.2 <=0.3 mg/dL [facility] Comment:Indocyanine Green (I CG) may cause falsely elevated bilirubin results. Total and direct bilirubin must not be measured from samples containing indocyanine green. Bili Indirect 0.3 0.0 - 0.9 mg/dL [facility] Blood 10/30/2022 7:33 AM CDT 10/30/2022 8:07 AM CDT Mela DICKEY LAB BLOOD ORDERABLE S Performing Organization Address City/[facility] Co de Phone Number [facility] Unless otherwise noted, all lab tests performed by: Division of Pathology and Laboratory Medicine [address] [place] [phone] * TMP Interpretation Antibody Screen Negative (10/30/2022 7:33 AM CDT) Only the most recent of3 resultswithin the time period is included. Pathologist [facility] TMP Auto Neg ABSC Interp At the present time, patient plasma shows no evidence of RBC alloantibodi es. [facility] Comment: MD Tommie [email or web address] Dictated by: MD Tommie QUESADA Dictated Date/Time: 10.30.2022 14:07 PM CDT Transcribed Date/Time: 10.30.2022 14:07 PM CDT Electronically Signed By: MD Tommie QUESADA on 10.30.2022 14:07 PM Blood 10/30/2022 7:33 AM CDT 10/30/2022 8:48 AM CDT Mela DICKEY BLOOD BANK TEST ORD ERABLES Performing Organization Address City/[facility] Co de Phone Number [facility] Unless otherwise noted, all lab tests performed by: Division of Pathology and Laboratory Medicine [address] [place] [phone] * ABORh (10/30/2022 7:33 AM CDT) Only the most recent of3 resultswithin the time period is included. Pathologist [facility] ABORh. A POS FL MD [facility] Blood 10/30/2022 7:33 AM CDT 10/30/2022 8:48 AM CDT Mela DICKEY BLOOD BANK TEST ORD ERABLES [facility] Unless otherwise noted, all lab tests performed by: Division of Pathology and Laboratory Medicine [address] [place] [phone] * Differential (10/30/2022 7:33 AM CDT) Only the most recent of3 resultswithin the time period is included. [facility] Neutrophil % 61.5 43.2 - 72.7 % [facility] Lymphocyte % 23.3 16.8 - 46.2 % [facility] Monocyte % 10.9 5.1 - 12.5 % [facility] Eosinophil % 3.3 0.4 - 6.3 % [facility] Basophil % 0.8 0.2 - 1.4 % [facility] IGRE % 0.2 0.1 - 1.5 % [facility] Comment:IGRE % count include s Metamyelocytes, Myelocytes, and Promyelocytes. Neutrophil Abs 3.91 1.95 - 7.25 K/uL [facility] Lymphocyte Abs 1.48 1.01 - 3.24 K/uL [facility] Monocyte Abs 0.69 0.24 - 0.85 K/uL [facility] Eosinophil Abs 0.21 0.02 - 0.50 K/uL [facility] Basophil Abs 0.05 0.02 - 0.09 K/uL [facility] IG Abs 0.01 0.01 - 0.12 K/uL [facility] Blood 10/30/2022 7:33 AM CDT 10/30/2022 7:35 AM CDT Mela DICKEY LAB BLOOD ORDERABLE S [facility] Unless otherwise noted, all lab tests performed by: Division of Pathology and Laboratory Medicine [address] [place] [id number] * Antibody Screen (10/30/2022 7:33 AM CDT) Only the most recent of3 resultswithin the time period is included. [facility] ABSC. Negative ABSC [facility] Blood 10/30/2022 7:33 AM CDT 10/30/2022 8:48 AM CDT Mela DICKEY BLOOD BANK TEST ORD ERABLES [facility] Unless otherwise noted, all lab tests performed by: Division of Pathology and Laboratory Medicine [address] [place] [id number] * Immunofixation electrophoresis (10/30/2022 7:33 AM CDT) Only the most recent of3 resultswithin the time period is included. [facility] RAVI No M-protein [facility] Blood 10/30/2022 7:33 AM CDT 10/30/2022 8:09 AM CDT Mela DICKEY LAB BLOOD ORDERABLE S Performing Organization Address City/[facility]/ZIP Co de Phone Number [facility] Unless otherwise noted, all lab tests performed by: Division of Pathology and Laboratory Medicine [address] [place] [address] 10260 * BUN (10/30/2022 7:33 AM CDT) Only the most recent of3 resultswithin the time period is included. [facility] BUN 14 6 - 23 mg/dL [facility] Blood 10/30/2022 7:33 AM CDT 10/30/2022 8:07 AM CDT Mela DICKEY LAB BLOOD ORDERABLE S [facility] Unless otherwise noted, all lab tests performed by: Division of Pathology and Laboratory Medicine [address] [place] [address] 20665 * ALT (10/30/2022 7:33 AM CDT) Only the most recent of3 resultswithin the time period is included. [facility] ALT 9 <=41 U/L [facility] Blood 10/30/2022 7:33 AM CDT 10/30/2022 8:07 AM CDT Mela DICKEY LAB BLOOD ORDERABLE S Performing Organization Address City/[facility]/ZIP Co de Phone Number [facility] Unless otherwise noted, all lab tests performed by: Division of Pathology and Laboratory Medicine [address] [place] [address] 19170 * Aspartate Aminotransferase (10/30/2022 7:33 AM CDT) Only the most recent of3 resultswithin the time period is included. AST 13 <=40 U/L [place] [facility] Blood 10/30/2022 7:33 AM CDT 10/30/2022 8:07 AM CDT Mela DICKEY LAB BLOOD ORDERABLE S Performing Organization Address City/[facility] de Phone Number [facility] Unless otherwise noted, all lab tests performed by: Division of Pathology and Laboratory Medicine [address] [place] [address] 66501 * Protein Electrophoresis (SPEP) (10/30/2022 7:33 AM CDT) Only the most recent of3 resultswithin the time period is included. TOT PROTEIN 6.6 6.4 - 8.3 gm/dL [facility] Albumin 3.8 3.6 - 5.4 gm/dL [facility] Alpha 1 Globulin 0.3 0.2 - 0.4 gm/dL [facility] Alpha 2 Globulin 0.8 0.5 - 1.0 gm/dL [facility] Beta Globulin 0.8 0.5 - 1.1 gm/dL [facility] Gamma Globulin 0.8 0.7 - 1.6 gm/dL [facility] Blood 10/30/2022 7:33 AM CDT 10/30/2022 8:09 AM CDT Mela DICKEY LAB BLOOD ORDERABLE S Performing Organization Address [facility] Co de Phone Number [facility] Unless otherwise noted, all lab tests performed by: Division of Pathology and Laboratory Medicine [address] [place] [address] 74707 * Total Protein (10/30/2022 7:33 AM CDT) Only the most recent of3 resultswithin the time period is included. Total Protein 6.6 6.4 - 8.3 g/dL [facility] Blood 10/30/2022 7:33 AM CDT 10/30/2022 8:07 AM CDT Mela DICKEY LAB BLOOD ORDERABLE S Performing Organization Address [facility] de Phone Number [facility] Unless otherwise noted, all lab tests performed by: Division of Pathology and Laboratory Medicine [address] [place] [address] 63529 * Alkaline Phosphatase (10/30/2022 7:33 AM CDT) Only the most recent of3 resultswithin the time period is included. Alk Phos 57 40 - 129 U/L [facility] Blood 10/30/2022 7:33 AM CDT 10/30/2022 8:07 AM CDT Mela DICKEY LAB BLOOD ORDERABLE S Performing Organization Address [facility] Co de Phone Number [facility] Unless otherwise noted, all lab tests performed by: Division of Pathology and Laboratory Medicine [address] [place] [address] 51243 * Glucose Level (10/30/2022 7:33 AM CDT) Only the most recent of3 resultswithin the time period is included. Glucose Level 94 70 - 99 mg/dL [facility] Comment: Effective 09/20/15, the glucose reference intervals have been updated based on [place] Diabetes [employer] guidelines (Standards of Medical Care in Diabetes 2016. Diabetes Care 2016; 39: S13-S22). Fasting blood glucose: Normal: 70-99 mg/dL Impaired fasting glucose (increased risk for diabetes or pre-diabetes): 100- 125 mg/dL Diabetes mellitus: >/=126 mg/dL Random blood glucose: Normal: 70-199 mg/dL Note: Random glucose >100 mg/dL is associated with increased risk for diabetes Blood 10/30/2022 7:33 AM CDT 10/30/2022 8:07 AM CDT Mela DICKEY LAB BLOOD ORDERABLE S Performing Organization Address City/State/[facility] Co de Phone Number [facility] Unless otherwise noted, all lab tests performed by: Division of Pathology and Laboratory Medicine [address] [place] [address] 42290 * Calcium Level (10/30/2022 7:33 AM CDT) Only the most recent of3 resultswithin the time period is included. Calcium Lvl 9.4 8.4 - 10.2 mg/dL [facility] Blood 10/30/2022 7:33 AM CDT 10/30/2022 8:07 AM CDT Mela DICKEY LAB BLOOD ORDERABLE S Performing Organization Address [facility] de Phone Number [facility] Unless otherwise noted, all lab tests performed by: Division of Pathology and Laboratory Medicine [address] [place] [address] 07786 * Albumin Level (10/30/2022 7:33 AM CDT) Only the most recent of3 resultswithin the time period is included. Albumin Lvl 4.1 3.5 - 5.2 gm/dL [facility] Blood 10/30/2022 7:33 AM CDT 10/30/2022 8:07 AM CDT Mela DICKEY LAB BLOOD ORDERABLE S Performing Organization Address City/[facility] Co de Phone Number [facility] Unless otherwise noted, all lab tests performed by: Division of Pathology and Laboratory Medicine [address] [place] [address] 29201 * (ABNORMAL) Electrolyte Panel (10/30/2022 7:33 AM CDT) Only the most recent of3 resultswithin the time period is included. Sodium Lvl 143 136 - 145 mEq/L [facility] Potassium Lvl 3.7 3.5 - 5.1 mEq/L [facility] Chloride 109(H) 98 - 107 mEq/L [facility] CO2 23 22 - 29 mEq/L [facility] Anion Gap 11 4 - 14 mEq/L [facility] Blood 10/30/2022 7:33 AM CDT 10/30/2022 8:07 AM CDT Mela DICKEY LAB BLOOD ORDERABLE S [facility] Unless otherwise noted, all lab tests performed by: Division of Pathology and Laboratory Medicine [address] [place] [address] [id number] * Urine RAVI Path Review (10/29/2022 7:00 PM CDT) Only the most recent of2 resultswithin the time period is included. UIFE Path Int The follow-up urine protein immunofixation electrophoretic patterns obtained with the use of antisera against IgG, IgA, IgM, bound kappa and bound lambda light chains, free kappa and free lambda light chains do not show definitive evidence of a Bence-Medrano proteinuria. [facility] Comment: MD Tommie ETIENNE [id number] Dictated by: MD Tommie ETIENNE [id number] Dictated Date/Time: 11.03.2022 10:27 AM CDT Transcribed Date/Time: 11.03.2022 10:27 AM CDT Electronically Signed By: MD Tommie ETIENNE [id number] on 11.03.2022 10:27 AM Urine 24 Hr 10/29/2022 7:00 PM CDT 10/31/2022 11:51 AM CDT Mela DICKEY URINE ORDERABLES [facility] Unless otherwise noted, all lab tests performed by: Division of Pathology and Laboratory Medicine [address] [place] [address] [phone] * Urine Prot Electrophoresis Path Review (10/29/2022 7:00 PM CDT) Only the most recent of2 resultswithin the time period is included. Pathologist [facility] U ProE Path Int The follow-up urine protein electrophoretic pattern does not show definitive evidence of a Bence-Medrano protein peak. [facility] Comment: MD Tommie ETIENNE [id number] Dictated by: MD Tommie ETIENNE [id number] Dictated Date/Time: 11.03.2022 10:27 AM CDT Transcribed Date/Time: 11.03.2022 10:27 AM CDT Electronically Signed By: MD Tommie ETIENNE [id number] on 11.03.2022 10:27 AM Urine 24 Hr 10/29/2022 7:00 PM CDT 10/31/2022 11:51 AM CDT Mela DICKEY URINE ORDERABLES [facility] Unless otherwise noted, all lab tests performed by: Division of Pathology and Laboratory Medicine [address] [place] [address] [phone] * (ABNORMAL) Total Volume (10/29/2022 7:00 PM CDT) Only the most recent of3 resultswithin the time period is included. [facility] Total Volume 1,600(H) 1,200 - 1,500 mL/24 h [facility] Hrs Collected 24 [facility] Start Date 10/28/2022 [facility] End Date 10/29/2022 [facility] U24 Comment 1900 [facility] Urine 24 Hr 10/29/2022 7:00 PM CDT 10/30/2022 9:44 AM CDT Mela DICKEY URINE ORDERABLES [facility] Unless otherwise noted, all lab tests performed by: Division of Pathology and Laboratory Medicine [address] [place] [address] 26770 * Protein Electrophoresis Urine (10/29/2022 7:00 PM CDT) Only the most recent of3 resultswithin the time period is included. U Albumin % 62.2 % [facility] U Globulin% 37.8 % [facility] Urine 24 Hr 10/29/2022 7:00 PM CDT 10/30/2022 11:11 AM CDT Mela DICKEY URINE ORDERABLES Performing Organization Address City/[facility] Co de Phone Number [facility] Unless otherwise noted, all lab tests performed by: Division of Pathology and Laboratory Medicine [address] [place] [address] 90395 * RAVI Urine (10/29/2022 7:00 PM CDT) Only the most recent of3 resultswithin the time period is included. UIFE No BJP Seen [facility] Urine 24 Hr 10/29/2022 7:00 PM CDT 10/30/2022 11:11 AM CDT Mela DICKEY URINE ORDERABLES [facility] Unless otherwise noted, all lab tests performed by: Division of Pathology and Laboratory Medicine [address] [place] [address] [place] [address] * Methylmalonic Acid Quant, Serum (08/28/2022 2:36 PM CDT) Pathologist [facility] 0.30 <=0.40 nmol/mL [facility] Comment: ADDITIONAL INFORMATION This test was developed and its performance characteristics determined by [facility] in a manner consistent with CLIA requirements. This test has not been cleared or approved by the U.S. Food and Drug Administration. Test Performed by: [facility] [place] [address] Grain Elevator Operator: Terrance Gutierrez M.D. Ph.D.; CLIA# [id number] Blood 08/28/2022 2:36 PM CDT 08/28/2022 3:39 PM CDT Shannon Quintanilla MD LAB BLOOD ORDERABLES [facility] Unless otherwise noted, all lab tests performed by: Division of Pathology and Laboratory Medicine [address] [place] [address] * Vitamin B1 Level (08/28/2022 2:36 PM CDT) [facility] Thiamin(Wh Bld)[facility] 124 70 - 180 nmol/L [facility] Comment: ADDITIONAL INFORMATION This test was developed and its performance characteristics determined by [facility] in a manner consistent with CLIA requirements. This test has not been cleared or approved by the U.S. Food and Drug Administration. Test Performed by: [facility] [address] [place] [address] Grain Elevator Operator: Terrance Gutierrez M.D. Ph.D.; CLIA# [id number] Blood 08/28/2022 2:36 PM CDT 08/28/2022 3:40 PM CDT Shannon Quintanilla MD LAB BLOOD ORDERABLES Performing Organization Address City/[facility] Co de Phone Number [facility] Unless otherwise noted, all lab tests performed by: Division of Pathology and Laboratory Medicine [address] [place] [address] [phone] * Vitamin B6 Level (08/28/2022 2:36 PM CDT) Pathologist [facility] See Footnote 5 - 50 mcg/L [facility] Comment: Unknown interfering substance present; unable to obtain results. ADDITIONAL INFORMATION This test was developed and its performance characteristics determined by [facility] in a manner consistent with CLIA requirements. This test has not been cleared or approved by the U.S. Food and Drug Administration. Pyridoxic Acid (PA)-[place]ely 6 3 - 30 mcg/L [facility] Comment: ADDITIONAL INFORMATION This test was developed and its performance characteristics determined by [facility] in a manner consistent with CLIA requirements. This test has not been cleared or approved by the U.S. Food and Drug Administration. Test Performed by: [facility] [place] [address] Grain Elevator Operator: Terrance Gutierrez M.D. Ph.D.; CLIA# [id number] Blood 08/28/2022 2:36 PM CDT 08/28/2022 3:40 PM CDT Shannon Quintanilla MD LAB BLOOD ORDERABLES Performing Organization Address [facility] Co de Phone Number [facility] Unless otherwise noted, all lab tests performed by: Division of Pathology and Laboratory Medicine [address] [place] [address] 11669 * Homocysteine Total (08/28/2022 2:36 PM CDT) [facility] Homocysteine 14.1 <=15.0 mcmol/L [facility] Blood 08/28/2022 2:36 PM CDT 08/28/2022 3:06 PM CDT Narrative [facility] - 08/28/2022 3:23 PM CDT This lab cannot be scheduled at the following locations due to collection/processing restrictions: [facility] REG DIAG LAB CTR [facility] REGS DIAG LAB CTR [facility] REGWL DIAG LAB CTR [facility] DAIG LAB CTR [facility] DIAG LAB CTR [facility] DI[facility] CTR Shannon Quintanilla MD LAB BLOOD ORDERABLES Performing Organization Address [facility] Co de Phone Number [facility] Unless otherwise noted, all lab tests performed by: Division of Pathology and Laboratory Medicine [address] [place] [address] [phone] * (ABNORMAL) Folate Level (08/28/2022 2:36 PM CDT) [facility] Folate Lvl 27.0(H) 4.8 - 24.2 ng/mL [facility] Comment:Hemolyzed specimens with Hemolysis Index >30.0 (30 mg/dL or visible hemolysis) may cause interference and give falsely high results. Blood 08/28/2022 2:36 PM CDT 08/28/2022 3:22 PM CDT Narrative [facility] - 08/28/2022 4:27 PM CDT This lab cannot be scheduled at the following locations due to collection/proccessing restrictions: [facility] DIAG LAB CTR [facility] DI[facility] CTR Shannon Quintanilla MD LAB BLOOD ORDERABLES Performing Organization Address [facility] Co de Phone Number [facility] Unless otherwise noted, all lab tests performed by: Division of Pathology and Laboratory Medicine [address] [place] [address] 64219 * Vitamin B12 Level (08/28/2022 2:27 PM CDT) [facility] Vitamin B12 Lvl 269 211 - 946 pg/mL [facility] Blood 08/28/2022 2:27 PM CDT 08/28/2022 3:05 PM CDT Shannon Quintanilla MD LAB BLOOD ORDERABLES [facility] Unless otherwise noted, all lab tests performed by: Division of Pathology and Laboratory Medicine [address] [place] [address] 66669 * Respiratory Multiplex PCR Panel, Nasopharyngeal Swab (07/25/2022 11:44 AM CDT) Pathologist [facility] Adenovirus Not Detected Not Detected [facility] Coronavirus 229E Not Detected Not Detected [facility] Coronavirus HKU1 Not Detected Not Detected [facility] Coronavirus NL63 Not Detected Not Detected [facility] Coronavirus OC43 Not Detected Not Detected [facility] COVID-19 (SARS-CoV-2) Not Detected Not Detected [facility] Human Metapneumovirus Not Detected Not Detected [facility] Human Rhinovirus/Enterov irus Not Detected Not Detected [facility] Influenza A Not Detected Not Detected [facility] Influenza A H1 Not Detected Not Detected [facility] Influenza A H1 2009 Not Detected Not Detected [facility] Influenza A H3 Not Detected Not Detected [facility] Influenza B Not Detected Not Detected [facility] Parainfluenza 1 Not Detected Not Detected [facility] Parainfluenza 2 Not Detected Not Detected [facility] Parainfluenza 3 Not Detected Not Detected [facility] Parainfluenza 4 Not Detected Not Detected [facility] Respiratory Syncytial Virus Not Detected Not Detected [facility] Bordetella parapertussis Not Detected Not Detected [facility] Bordetella pertussis Not Detected Not Detected [facility] Chlamydiophila pneumoniae Not Detected Not Detected [facility] Mycoplasma pneumoniae Not Detected Not Detected [facility] Nasopharyngeal Swab 07/26/19 11:44 AM CDT 07/25/2022 2:27 PM CDT Narrative [facility] - 07/25/2022 3:23 PM CDT Has patient had a positive for COVID-19 result in the last 3 months?->No The BioFire RP2.1 is a real-time, nested multiplexed polymerase chain reaction test designed to simultaneously identify nucleic acids from 22 different viruses and bacteria associated with respiratory tract infection, including SARS-CoV-2, from a single nasopharyngeal swab (WEIGHTS AND MEASURES INSPECTOR) specimen obtained from individuals suspected of respiratory tract infections, including COVID-19. Results must be interpreted within the context of all relevant clinical and laboratory findings and should not form the sole basis for a diagnosis or treatment decision. Positive results do not rule out coninfection with other organisms. Negative results in the setting of a respiratory illness may be due to infection with pathogens that are not detected by this panel, or a lower respiratory tract infection that may not be detected by an WEIGHTS AND MEASURES INSPECTOR specimen. Internal controls are used to monitor all stages of the test process and assess for possible amplification inhibitors. If inhibition is detected, testing is repeated and if inhibition is confirmed the specimen is resulted as "Invalid". When an "Invalid" result occurs, it is recommended to wait 3 days before submitting a new specimen for testing if clinically indicated. This assay has been approved by the FDA for use in laboratories that have been CLIA-certified to perform moderate-complexity and high-complexity tests. [facility], CLIA Accreditation #[id number] and CAP Accreditation #[id number], verified the performance characteristics of this assay. [facility] performs the assay using the [employer] System. The BioFire RP2.1 is a real-time, nested multiplexed polymerase chain reaction test designed to simultaneously identify nucleic acids from 22 different viruses and bacteria associated with respiratory tract infection, including SARS-CoV-2, from a single nasopharyngeal swab (WEIGHTS AND MEASURES INSPECTOR) specimen obtained from individuals suspected of respiratory tract infections, including COVID-19. Results must be interpreted within the context of all relevant clinical and laboratory findings and should not form the sole basis for a diagnosis or treatment decision. Positive results do not rule out coninfection with other organisms. Negative results in the setting of a respiratory illness may be due to infection with pathogens that are not detected by this panel, or a lower respiratory tract infection that may not be detected by an WEIGHTS AND MEASURES INSPECTOR specimen. Internal controls are used to monitor all stages of the test process and assess for possible amplification inhibitors. If inhibition is detected, testing is repeated and if inhibition is confirmed the specimen is resulted as "Invalid". When an "Invalid" result occurs, it is recommended to wait 3 days before submitting a new specimen for testing if clinically indicated. This assay has been approved by the FDA for use in laboratories that have been CLIA-certified to perform moderate-complexity and high-complexity tests. [facility], CLIA Accreditation #[id number] and CAP Accreditation #[id number], verified the performance characteristics of this assay. [facility] performs the assay using the [employer] System. Mela DICKEY MICROBIOLOGY - GENE RAL ORDERABLES Performing Organization Address City/[facility]/ZIP Co de Phone Number [facility] Unless otherwise noted, all lab tests performed by: Division of Pathology and Laboratory Medicine [address] [place] [address] [phone] * Protein Electrophoresis Path Review (07/25/2022 9:04 AM CDT) SPE Path Interp The follow-up serum protein electrophoretic pattern does not show definitive evidence of an M-protein peak. [facility] Comment: MD Tommie ETIENNE [id number] Dictated by: MD Tommie ETIENNE [id number] Dictated Date/Time: 07.28.2022 13:56 PM CDT Transcribed Date/Time: 07.28.2022 13:56 PM CDT Electronically Signed By: MD Tommie ETIENNE [id number] on 07.28.2022 13:56 PM Blood 07/25/2022 9:04 AM CDT 07/25/2022 1:21 PM CDT Mela DICKEY LAB BLOOD ORDERABLE S Performing Organization Address City/[facility]/ZIP Co de Phone Number [facility] Unless otherwise noted, all lab tests performed by: Division of Pathology and Laboratory Medicine [address] [place] [address] [phone] * RAVI Path Review (07/25/2022 9:04 AM CDT) RAVI Path Int The follow-up serum protein immunofixation electrophoretic patterns obtained with the use of antisera against IgG, IgA, IgM, bound kappa and bound lambda light chains do not show definitive evidence of a monoclonal gammopathy. [facility] Comment: MD Tommie ETIENNE [id number] Dictated by: MD Tommie ETIENNE [id number] Dictated Date/Time: 07.28.2022 13:56 PM CDT Transcribed Date/Time: 07.28.2022 13:56 PM CDT Electronically Signed By: MD Tommie ETIENNE [id number] on 07.28.2022 13:56 PM Blood 07/25/2022 9:04 AM CDT 07/25/2022 1:21 PM CDT Mela DICKEY LAB BLOOD ORDERABLE S [facility] Unless otherwise noted, all lab tests performed by: Division of Pathology and Laboratory Medicine [address] [place] [address] [phone] * Urine RAVI Path Review (07/24/2022 3:00 PM CDT) Pathologist [facility] UI Path Int The follow-up urine protein immunofixation electrophoretic patterns obtained with the use of antisera against IgG, IgA, IgM, bound kappa and bound lambda light chains, free kappa and free lambda light chains do not show definitive evidence of a Bence-Medrano proteinuria. [facility] Comment: MD Tommie JIMENEZ [id number] Dictated by: MD Tommie [id number] Dictated Date/Time: 08.02.2022 17:18 PM CDT Transcribed Date/Time: 08.02.2022 17:18 PM CDT Electronically Signed By: MD Tommie [id number] on 08.02.2022 17:18 PM Urine 24 Hr 07/24/2022 3:00 PM CDT 07/26/2022 11:02 AM CDT Mela DICKEY URINE ORDERABLES Performing Organization Address City/[facility] Co de Phone Number [facility] Unless otherwise noted, all lab tests performed by: Division of Pathology and Laboratory Medicine [address] [place] [address] [phone] * Urine Prot Electrophoresis Path Review (07/24/2022 3:00 PM CDT) U Juan Path Int The follow-up urine protein electrophoretic pattern does not show definitive evidence of a Bence-Medrano protein peak. [facility] Comment: MD Tommie JIMENEZ [id number] Dictated by: MD Tommie [id number] Dictated Date/Time: 08.02.2022 17:18 PM CDT Transcribed Date/Time: 08.02.2022 17:18 PM CDT Electronically Signed By: MD Tommie [id number] on 08.02.2022 17:18 PM Urine 24 Hr 07/24/2022 3:00 PM CDT 07/26/2022 11:02 AM CDT Mela DICKEY URINE ORDERABLES Performing Organization Address City/[facility] Co de Phone Number [facility] Unless otherwise noted, all lab tests performed by: Division of Pathology and Laboratory Medicine [address] [place] [id number] * Protein Electrophoresis Path Review (04/24/2022 8:01 AM RAIL SIGNAL MECHANIC) Pathologist [facility] SPE Path Interp The follow-up serum protein electrophoretic pattern does not show definitive evidence of an M-protein peak. [facility] Comment: MD Tommie JIMENEZ Dictated by: MD Tommie JIMENEZ Dictated Date/Time: 05.05.2022 15:19 PM CDT Transcribed Date/Time: 05.05.2022 15:19 PM CDT Electronically Signed By: MD Tommie JIMENEZ on 05.05.2022 15:19 PM Blood 04/24/2022 8:01 AM RAIL SIGNAL MECHANIC 04/25/2022 8:14 AM RAIL SIGNAL MECHANIC Mela DICKEY LAB BLOOD ORDERABLE S [facility] Unless otherwise noted, all lab tests performed by: Division of Pathology and Laboratory Medicine [address] [place] [id number] * RAVI Path Review (04/24/2022 8:01 AM RAIL SIGNAL MECHANIC) [facility] RAVI Path Int The follow-up serum protein immunofixation electrophoretic patterns obtained with the use of antisera against IgG, IgA, IgM, bound kappa and bound lambda light chains do not show definitive evidence of a monoclonal gammopathy. [facility] Comment: MD Tommie JIMENEZ Dictated by: MD Tommie JIMENEZ Dictated Date/Time: 05.05.2022 15:19 PM CDT Transcribed Date/Time: 05.05.2022 15:19 PM CDT Electronically Signed By: MD Tommie JIMENEZ on 05.05.2022 15:19 PM Blood 04/24/2022 8:01 AM RAIL SIGNAL MECHANIC 04/25/2022 8:14 AM RAIL SIGNAL MECHANIC Mela DICKEY LAB BLOOD ORDERABLE S [facility] Unless otherwise noted, all lab tests performed by: Division of Pathology and Laboratory Medicine [address] [place] [address] after 03/10/2022 Advance Directives Documents on File Type Date Recorded Patient Analysis Or Research Safety Inspector Expl anation Advance Directives: Living Will 08/27/2018 Medical Power of Att orney Advance Directives: Living Will 08/24/2018 Living will Advance Directives: Living Will 04/14/2014 Historical Care Teams Stain Applicator Relationship Specialty Start Date End Date Vira Salazar MD PCP - External Follow Up B 11/02/13 Yary Cobian MD [address] [place] [id number] PCP - General Stem Cell Transplant 11/28/17 Jody Jackson MD [address] [place] [phone] Physician 05/03/15 Cristina Lake CONSULTING SERVICES ASSOCIATE Nurse Practitioner 05/03/15 Bennett Burton MD Physician 05/03/15 Pavithra Chung DO [address] [place] [phone] Physician 05/03/15 Sarai Pichardo APRN [address] [place] [address] [phone] Nurse Practitioner 05/03/15 Juan F Bravo MD [address] [place] [phone] Physician 05/03/15 Shannon Quintanilla MD [address] [place] [phone] Consulting Physician Neuro-Oncology 08/28/22 Bud Bazzi MD [address] [place] [address] [phone] Consulting Physician Dermatology 09/08/15 Dylan Rae MD [address] [place] [phone] Consulting Physician Gastroenterology, Hepatology and Nutrition 04/14/17 Matilde Appiah MD [address] [place] [address] Consulting Physician Psychiatry 07/06/15 Azul Erwin MD [address] [place], [place] [phone] Consulting Physician Dermatology 05/27/17
[2023-03-10 07:51] LABS: Absolute Lymphocytes (CBC) 1.3 K/uL (0.7-4.9); Hematocrit 45.6 % (39.6-49.0); Lymphocytes % 13.4 % (15.3-44.8); MCV 94.4 fL (80-100); MPV 8.4 fL (7.6-11.3); Platelets 207 thou/uL (152-406); RBC Red Blood Cell Count 4.83 M/uL (4.33-5.43)
[2023-03-10 08:18] LABS: Potassium 3.5 mEq/L (3.5-5.1)
[2023-03-10 08:19] LABS: Protime INR 1.34
--- NOTE | 2023-03-10 08:59 | RAD REPORT ---
EXAM DESCRIPTION: Shoulder Right 2 View - 03/10/2023 8:27 am CLINICAL HISTORY: R shoulder injury COMPARISON: No comparisons TECHNIQUE: Internal and external rotation views of the right shoulder were obtained. FINDINGS: There is no fracture or dislocation. AC joint [id number] degenerative changes. No ac kaltag or suspicious findings. PICC density along the greater tuberosity, may relate to sequelae of rota tor cuff disease or calcific tendinitis. IMPRESSION: No acute osseous abnormality. Chronic findings as above.
--- NOTE | 2023-03-10 09:32 | RAD REPORT ---
EXAM DESCRIPTION: CT - Head C Spine Cap Benjie Braun - 03/10/2023 8:39 am CLINICAL HISTORY: Chest pain after a fall COMPARISON: No comparisons TECHNIQUE: Head and cervical spine CT images were obtained without IV contrast. Chest, abdomen, and pelvis CT images were obtained also without IV contrast. Multiplanar reformats were generated and rev iewed. All CT scans are performed using dose optimization technique as appropriate and may include automated exposure control or mA/KV adjustment according to patient size. FINDINGS: CT HEAD: No intracranial hemorrhage, mass effect, or edema. No evidence of acute territorial infarct. No midli ne shift or abnormal fluid collection. The ventricles are normal in caliber and configuration for age . Basal cisterns are patent. Mastoid aircells and paranasal sinuses are clear. No acute skull fractur e. CT CERVICAL SPINE: No acute cervical spine fracture or subluxation. Vertebral body heights are well maintained. Facet marium ints are normal in alignment. No hyperattenuating canal hematoma. Prevertebral and paraspinous soft t issues are unremarkable. CT CHEST: No pneumothorax, pulmonary contusion or pleural fluid collection. No mediastinal hematoma and the aor ta and pulmonary arteries are unremarkable. No chest will mass or abnormal axillary finding. No displ aced rib fracture or other significant bony finding. CT ABDOMEN/ PELVIS: No evidence of traumatic injury to solid abdominal viscera. Gallbladder is markedly distended. Multip le renal cysts, largest at the right superior pole measuring 2.9 cm, and on the lower left renal pole measuring 3.2 cm. No bowel injury or significant finding. No free air, free fluid or abnormal fat st randing. No urinary bladder abnormality. Mildly displaced right lateral 4th rib fracture. Suspected nondisplaced right fifth and sixth rib fra ctures. IMPRESSION: Right fourth- sixth rib fractures, with mild displacement of the fourth rib. Markedly distended gallbladder without adjacent inflammatory changes. Please correlate clinically for evidence of obstruction or cholecystitis. No other acute findings.
--- NOTE | 2023-03-10 10:57 | RAD REPORT ---
EXAM DESCRIPTION: US - Abdomen Exam Limited - 03/10/2023 10:16 am CLINICAL HISTORY: ABD PAIN COMPARISON: Head C Spine Cap Wo Con dated 03/10/2023 TECHNIQUE: Sonographic grayscale and color flow images of the right upper abdominal quadrant were o btained. FINDINGS: The gallbladder is markedly distended, with heterogeneous hypoechoic vascularized soft tis arcenio within. No appreciable echogenic calculi, or residual fluid filled portion of the lumen. No peric holecystic fluid or gallbladder wall thickening. The common bile duct is normal in caliber, 4 mm, alt charly difficult to evaluate given depth. The liver demonstrates no findings of intrahepatic biliary dilatation. IMPRESSION: Heterogeneous hypoechoic soft tissue distending the gallbladder. This could represent pr imary gallbladder malignancy, severe mural thickening in the setting of chronic cholecystitis, or ext ensive gallbladder polyposis. Surgical evaluation is recommended. No pericholecystic inflammatory changes to suggest acute cholecystitis.
[2023-03-10 11:36] LABS: Albumin 3.3 g/dL (3.4-5.0); Bilirubin Direct 0.2 mg/dL (0-0.2); Bilirubin Indirect, Calculated 0.5 mg/dL (0.2-0.8); Bilirubin Total 0.7 mg/dL (0.2-1.0); Protein, Total 6.6 g/dL (6.4-8.2)
--- NOTE | 2023-03-10 11:51 | ER ---
Nurse's Notes [facility] Name: Álvaro Méndez Jr Age: 77 yrs Sex: Male : 1945 Arrival Date: 03/10/2023 Time: 06:54 Bed 6 Private MD: Diagnosis: Fall on same level, unspecified;Strain of muscle and tendon of back wall of thorax;Strain of muscle and tendon of thorax;Contusion of right shoulder;Multiple fractures of ribs, right side;Abnormal findings on diagnostic imaging of liver and biliary tract-USG HETEROGENOUS HYPOECHOIC SOFT TISSUE DISTENDING THE GALLBLADDER. NEEDS SURGICAL FOLLOW UP, RULE OUT MALIGNANCY, CHOLECYSTITIS CHRONIC OR GALLBLADDER POLYPOSIS Presentation: 03/10 06:57 Chief complaint: EMS states: Per [facility]: Pt had a syncope episode on Friday that nw1 resulted in him falling to his right side and injuring right shoulder and wrist. Pt states that he hit his head. Denies blood thinners. When seen at urgent care, he was told nothing is fractured or broken and was given at home medications. Pt tenses up and yells when taking blood pressure; therefore unable to get an accurate BP. Coronavirus screen: Client denies travel out of the [place] in the last 14 days. At this time, the client does not indicate any symptoms associated with coronavirus-19. Ebola Screen: Patient negative for fever greater than or equal to 101.5 degrees Fahrenheit, and additional compatible Ebola Virus Disease symptoms Patient denies exposure to infectious person. Patient denies travel to an Ebola-affected area in the 21 days before illness onset. No symptoms or risks identified at this time. Initial Sepsis Screen: Does the patient meet any 2 criteria? No. Patient's initial sepsis screen is negative. Does the patient have a suspected source of infection? No. Patient's initial sepsis screen is negative. Risk Assessment: Do you want to hurt yourself or someone else? Patient reports no desire to harm self or others. Onset of symptoms was March 07, 2023. 06:57 Method Of Arrival: EMS: [facility] nw1 06:57 Acuity: DELL 3 nw1 Triage Assessment: 07:04 General: Appears uncomfortable, Behavior is anxious, restless. Pain: Complains of pain nw1 in anterior aspect of right shoulder. Musculoskeletal: Reports pain in anterior aspect of right shoulder. Historical: - Allergies: 07:04 No Known Allergies; nw1 - Immunization history:: unknown. - Social history:: Smoking status: Patient denies any tobacco usage or history of. - Family history:: not pertinent. Screenin:38 [facility] ED Fall Risk Assessment (Adult) History of falling in the last 3 months, ko1 including since admission Yes- single mechanical fall (1 pt) Confusion or Disorientation No (0 pts) Intoxicated or Sedated No (0 pts) Impaired Gait No (0 pts) Mobility Assist Device Used No (0 pt) Altered Elimination No (0 pt) Score/Fall Risk Level 0 - 2 = Low Risk Oriented to surroundings, Maintained a safe environment, Educated pt \T\ family on fall prevention, incl call for assistance when getting out of bed, Assessed \T\ reinforced patient's understanding of fall precautions, Provided non-skid footwear, Hourly rounding (assess needs \T\ fall precautionary measures) done, Used ambulatory aids as needed (educated on \T\ assisted with), Used gait belt as appropriate. Abuse screen: Denies threats or abuse. Denies injuries from another. Nutritional screening: No deficits noted. Tuberculosis screening: No symptoms or risk factors identified. Assessment: 07:38 Neuro: No deficits noted. Cardiovascular: No deficits noted. Respiratory: No deficits ko1 noted. GI: No deficits noted. : No deficits noted. EENT: No deficits noted. Derm: skin tear to right forearm and left wrist, multiple bruises to upper extremities at different stages. Musculoskeletal: Reports pain in right arm and anterior aspect of right shoulder. Vital Signs: 06:57 BP 216 / 118; Pulse 73; Resp 19; Temp 97.7(O); Pulse Ox 98% on R/A; Weight 86.18 kg nw1 (M); Height 5 ft. 11 in. ; Pain 10/10; 07:10 BP 178 / 91; Pulse 64; Resp 18; Pulse Ox 96% on R/A; ph 08:18 BP 164 / 94; Pulse 63; Resp 15; Pulse Ox 95% ; ko1 11:20 BP 148 / 92; Pulse 70; Resp 18; Pulse Ox 95% on R/A; ph 12:39 BP 138 / 88; Pulse 72; Resp 15; Pulse Ox 97% ; ko1 06:57 Body Mass Index 26.50 (86.18 kg, 180.34 cm) nw1 06:57 Pain Scale: Adult nw1 ED Course: 06:56 Patient arrived in ED. as6 06:57 Kaitlynn Engle, RN is Primary Nurse. nw1 07:00 Brian Lopez MD is Attending Physician. sp4 07:04 Triage completed. nw1 07:04 Arm band placed on right wrist. nw1 07:11 Attending Physician role handed off by Brian Lopez MD srinath 07:11 Joaquin Nichols MD is Attending Physician. srinath 07:20 Inserted saline lock: 20 gauge in left forearm, using aseptic technique. Blood ko1 collected. 07:36 Basic Metabolic Panel Sent. ko1 07:36 CBC with Diff Sent. ko1 07:36 Type And Screen Sent. ko1 07:37 Odilia Adamson, NATACHA is Primary Nurse. ko1 07:38 Patient has correct armband on for positive identification. Fall risk band placed. Bed ko1 in low position. Call light in reach. Side rails up X2. Client placed on continuous cardiac and pulse oximetry monitoring. NIBP monitoring applied. panel monitor on. Door closed. Noise minimized. Lights dimmed. Warm blanket given. 08:29 Shoulder Right (2 View) XRAY In Process Unspecified. EDMS 08:40 Head C Spine Cap Wo Con In Process Unspecified. EDMS 10:18 US Abdomen Limited In Process Unspecified. EDMS 10:32 INCENTIVE SPIROMETRY Sent. ko1 11:47 Wayne Martinez MD is Referral Physician. [facility] 11:47 Delvis Lee MD is Referral Physician. [facility] 12:39 Provided Education on: na. ko1 12:39 No provider procedures requiring assistance completed. IV discontinued, intact, ko1 bleeding controlled, No redness/swelling at site. Pressure dressing applied. Administered Medications: 07:25 Drug: Ondansetron IVP 4 mg IVP once; over 2 minutes Route: IVP; Site: left forearm; ko1 10:22 Follow up: Response: No adverse reaction ko1 07:25 Drug: NS 0.9% IV 1000 ml IV at 1 bolus Per protocol; 1000 mL bolus Route: IV; Rate: 1 ko1 bolus; Site: left forearm; 10:21 Follow up: Response: No adverse reaction; IV Status: Completed infusion; IV Intake: ko1 1000ml 07:27 Drug: Ketorolac IVP 30 mg IVP once Route: IVP; Site: left forearm; ko1 10:22 Follow up: Response: No adverse reaction ko1 07:30 Drug: morphine IVP or IV 4 mg IVP once over 4 mins Route: IVP; Infused Over: 4 mins; ko1 Site: left forearm; 10:22 Follow up: Response: No adverse reaction ko1 09:44 Drug: [place] PO 10 mg-325 mg 1 tabs PO once Route: PO; ph 10:21 Follow up: Response: No adverse reaction; Pain is decreased ko1 Medication: 12:39 VIS not applicable for this client. ko1 Intake: 10:21 IV: 1000ml; Total: 1000ml. ko1 Outcome: 11:51 Discharge ordered by . srinath 12:58 Discharged to home ambulatory, ko1 12:58 Condition: stable 12:58 Discharge instructions given to patient, family, Instructed on discharge instructions, follow up and referral plans. medication usage, Demonstrated understanding of instructions, follow-up care, medications, Prescriptions given X 3, 13:02 Patient left the ED. ko1 Signatures: Dispatcher [employer] EDMS Joaquin Nichols MD MD cha Hall, Patricia RN RN ph Ronn Pihcardo RN RN as6 Odilia Adamson RN RN ko1 Brian Lopez MD MD sp4 Kaitlynn Engle RN RN nw1
--- NOTE | 2023-03-10 11:52 | EDPHYS ---
Physician Documentation [facility] Name: Álvaro Méndez Jr Age: 77 yrs Sex: Male : 1945 Arrival Date: 03/10/2023 Time: 06:54 Bed 6 Private MD: ED Physician Joaquin Nichols HPI: 03/10 07:02 This 77 yrs old Male presents to ER via Unassigned with complaints of R sp4 shoulder and chest wall injury . 07:02 77-year-old male presents with EMS with worsening right shoulder pain associated with a sp4 recent fall on Friday.. Patient states he had syncopal episode on Friday 4 days ago while mowing the lawn. Patient states he fell onto the right shoulder causing pain injury to the right shoulder. He was at the urgent care clinic for right shoulder pain yesterday and x-rays were reportedly unremarkable. He was given Toradol for pain. He was sent home with pain has intensified this morning prompting EMS call. Right shoulder has no sign of dislocations, has no significant deformities. Patient reports moderate to severe pain in the right shoulder right scapula. There is also a right wrist abrasion.. Historical: - Allergies: 07:04 No Known Allergies; nw1 - Immunization history:: unknown. - Social history:: Smoking status: Patient denies any tobacco usage or history of. - Family history:: not pertinent. ROS: 07:02 Constitutional: Negative for fever, chills, and weight loss, positive syncopal episode, sp4 positive for right shoulder pain and injury. 07:02 All other systems are negative, Exam: 07:02 Constitutional: This is a well developed, well nourished patient who is awake, alert, sp4 moderate distress secondary to pain Head/Face: Normocephalic, atraumatic. Eyes: Pupils equal round and reactive to light, extra-ocular motions intact. Lids and lashes normal. Conjunctiva and sclera are not injected. Cornea within normal limits. Periorbital areas with no swelling, redness, or edema. ENT: Nares patent. No nasal discharge, no septal abnormalities noted. Tympanic membranes are normal and external auditory canals are clear. Oropharynx with no redness, swelling, or masses, exudates, or evidence of obstruction, uvula midline. Mucous membranes moist. Neck: Trachea midline, no thyromegaly or masses palpated, and no cervical lymphadenopathy. Supple, full range of motion without nuchal rigidity, or vertebral point tenderness. Chest/axilla: Normal chest wall appearance and motion. Nontender with no deformity. No lesions are appreciated. Cardiovascular: Regular rate and rhythm with a normal S1 and S2. No gallops, murmurs, or rubs. Normal PMI, no JVD. No pulse deficits. Respiratory: Lungs have equal breath sounds bilaterally, clear to auscultation and percussion. No rales, rhonchi or wheezes noted. No increased work of breathing, no retractions or nasal flaring. Abdomen/GI: Soft, non-tender, with normal bowel sounds. No distension or tympany. No guarding or rebound. No evidence of tenderness throughout. Back: No spinal tenderness. No costovertebral tenderness. There is sacral decubitus ulcer that is covered by the wound VAC. Male : Normal genitalia with no discharge or lesions. Skin: Warm, dry with normal turgor. Normal color with no rashes, no lesions, and no evidence of cellulitis. MS/ Extremity: Pulses equal, no cyanosis. Neurovascular intact. Right shoulder tenderness no deformity, normal peripheral pulses, decreased to right shoulder ROM Neuro: Awake and alert, GCS 15, oriented to person, place, time, and situation. Cranial nerves II-XII grossly intact. Motor strength 5/5 in all extremities. Sensory grossly intact. Psych: Awake, alert, with orientation to person, place and time. Behavior, mood, and affect are within normal limits Vital Signs: 06:57 BP 216 / 118; Pulse 73; Resp 19; Temp 97.7(O); Pulse Ox 98% on R/A; Weight 86.18 kg nw1 (M); Height 5 ft. 11 in. ; Pain 10/10; 07:10 BP 178 / 91; Pulse 64; Resp 18; Pulse Ox 96% on R/A; ph 08:18 BP 164 / 94; Pulse 63; Resp 15; Pulse Ox 95% ; ko1 11:20 BP 148 / 92; Pulse 70; Resp 18; Pulse Ox 95% on R/A; ph 12:39 BP 138 / 88; Pulse 72; Resp 15; Pulse Ox 97% ; ko1 06:57 Body Mass Index 26.50 (86.18 kg, 180.34 cm) nw1 06:57 Pain Scale: Adult nw1 MDM: 07:09 Differential Diagnosis altered mental status, sepsis, flu, Right shoulder injury. Data sp4 reviewed: vital signs, nurses notes. Transition of care: After a detail discussion of the patient's case, care is transferred to Joaquin Nichols MD. 07:09 Patient medically screened. 4 03/10 07:01 Order name: Basic Metabolic Panel; Complete Time: 08:19 [facility] 03/10 07:01 Order name: CBC with Diff; Complete Time: 08:06 [facility] 03/10 07:01 Order name: Type And Screen; Complete Time: 08:19 [facility] 03/10 07:01 Order name: PT-INR; Complete Time: 09:23 [facility] 03/10 11:15 Order name: LFT's; Complete Time: 11:37 [facility] 03/10 11:15 Order name: Lipase; Complete Time: 11:37 [facility] 03/10 07:02 Order name: Shoulder Right (2 View) XRAY; Complete Time: 09:23 [facility] 03/10 08:34 Order name: Head C Spine Cap Wo Con; Complete Time: 09:45 EDMS 03/10 09:24 Order name: INCENTIVE SPIROMETRY [facility] 03/10 09:45 Order name: US Abdomen Limited; Complete Time: 11:14 [facility] 03/10 07:01 Order name: Labs collected and sent; Complete Time: 07:36 [facility] 03/10 07:01 Order name: Saline Lock; Complete Time: 07:36 [facility] 03/10 07:01 Order name: Oxygen Per Protocol; Complete Time: 07:12 [facility] 03/10 07:46 Order name: Labs - recollect needed: recollect blue to ,fill to line; Complete Time: bd 08:08 03/10 09:25 Order name: Sling; Complete Time: 10:32 [facility] Administered Medications: 07:25 Drug: Ondansetron IVP 4 mg IVP once; over 2 minutes Route: IVP; Site: left forearm; ko1 10:22 Follow up: Response: No adverse reaction ko1 07:25 Drug: NS 0.9% IV 1000 ml IV at 1 bolus Per protocol; 1000 mL bolus Route: IV; Rate: 1 ko1 bolus; Site: left forearm; 10:21 Follow up: Response: No adverse reaction; IV Status: Completed infusion; IV Intake: ko1 1000ml 07:27 Drug: Ketorolac IVP 30 mg IVP once Route: IVP; Site: left forearm; ko1 10:22 Follow up: Response: No adverse reaction ko1 07:30 Drug: morphine IVP or IV 4 mg IVP once over 4 mins Route: IVP; Infused Over: 4 mins; ko1 Site: left forearm; 10:22 Follow up: Response: No adverse reaction ko1 09:44 Drug: [place] PO 10 mg-325 mg 1 tabs PO once Route: PO; ph 10:21 Follow up: Response: No adverse reaction; Pain is decreased ko1 Disposition Summary: 03/10/23 11:51 Discharge Ordered Notes: Location: Home srinath Problem: new srinath Symptoms: have improved srinath Condition: Stable srinath Diagnosis - Fall on same level, unspecified srinath - Strain of muscle and tendon of back wall of thorax srinath - Strain of muscle and tendon of thorax srinath - Contusion of right shoulder srinath - Multiple fractures of ribs, right side srinath - Abnormal findings on diagnostic imaging of liver and biliary tract - USG srinath HETEROGENOUS HYPOECHOIC SOFT TISSUE DISTENDING THE GALLBLADDER. NEEDS SURGICAL FOLLOW UP, RULE OUT MALIGNANCY, CHOLECYSTITIS CHRONIC OR GALLBLADDER POLYPOSIS Followup: srinath - With: Private Physician - When: 2 - 3 days - Reason: Recheck today's complaints, Continuance of care, Re-evaluation by your physician Followup: srinath - With: Wayne Martinez MD - When: 2 - 3 days - Reason: Recheck today's complaints, Continuance of care, Re-evaluation by your physician Followup: srinath - With: Delvis Lee MD - When: 2 - 3 days - Reason: Recheck today's complaints, Re-evaluation by your physician Discharge Instructions: - Discharge Summary Sheet srinath - Chest Contusion, Adult srinath - Fall Prevention in the Home, Adult srinath - Shoulder Pain srinath - How to Use an Incentive Spirometer srinath - Shoulder Pain, Setw-nv-Mnbr srinath - Chest Contusion, Adult, Owxp-yy-Yjzy srinath - Rib Fracture, Kidl-xq-Zojy srinath - Gallbladder Eating Plan [facility] Forms: - Medication Reconciliation Form srinath - Thank You Letter srinath - Antibiotic Education srinath - Prescription Opioid Use srinath - Patient Portal Instructions srinath - Leadership Thank You Letter [facility] Prescriptions: - acetaminophen-codeine 300-30 mg Oral tablet - take 2 tablet ORAL route every 6 hours as needed for pain; 20 tablet; Refills: [facility] 0, Product Selection Permitted - Ibuprofen 600 mg Oral Tablet - take 1 tablet ORAL route every 6 hours As needed take with food; 30 tablet; srinath Refills: 0, Product Selection Permitted - Valium 2 mg Oral Tablet - take 1 tablet ORAL route every 8 hours As needed; 20 tablet; Refills: 0, [facility] Product Selection Permitted Signatures: Dispatcher [employer] EDMS Tyra Evans Corey, MD MD cha Hall, Patricia RN RN ph Odilia Adamson RN RN ko1 Brian Lopez MD MD sp4 Kaitlynn Engle RN RN nw1 Corrections: (The following items were deleted from the chart) 08:34 07:02 Head C Spine CAP W Con+CT.RAD.BRZ ordered. EDRI EDMS
[2023-03-10 13:28] VITALS: TEMP 97.7
[2023-03-10 13:47] VITALS: BP 138/88; O2SAT 97
== END ==
LOC: ER 06:54
DX: S29.012A Strain of muscle and tendon of back wall of thorax, initial encounter (principal); S22.41XA Multiple fractures of ribs, right side, initial encounter for closed fracture; S40.011A Contusion of right shoulder, initial encounter; R93.2 Abnormal findings on diagnostic imaging of liver and biliary tract; W18.30XA Fall on same level, unspecified, initial encounter
CPT/HCPCS: 96361; 85025; 80048; 36415; 86900; 86850; 85610; 86901; 80076; 83690; 70450; 71250; 72125; 73030; 76705; 96375; 96374; 99285; J2405; J7030